=== PATIENT | male | born 1945 | race Caucasian/White ===

== ENCOUNTER 2016-08-27 21:03 | Inpatient (IN) | payer MEDICARE ==
[2016-08-27] MEDS ORDERED: IPRATROPIUM/ALBUTEROL 0.5-2.5 MG/3 ML AMPUL NEB ONE (21:16)
[2016-08-27] MEDS ORDERED: PREDNISONE 20 MG TABLET PO ONE (21:16)
[2016-08-27] MEDS ORDERED: ALBUTEROL SULFATE 0.083% NEB 2.5 MG/3 ML AMPUL NEB SCH (21:31)
[2016-08-27] MEDS ORDERED: ALBUTEROL SULFATE 0.083% NEB 2.5 MG/3 ML AMPUL NEB ONE ×2 (22:04→23:40)
[2016-08-27] MEDS ORDERED: NORMAL SALINE 1000 ML 1,000 ML IV ONE ×2 (22:06→23:41)
--- NOTE | 2016-08-27 22:06 | ER Document Report ---
ED General - General Chief Complaint: Shortness Of Breath Stated Complaint: SHORTNESS OF BREATH Time Seen by Provider: 08/27/16 21:40 Notes: Patient is a 70-year-old male with past medical history of COPD, morbid obesity , noncompliant with all treatment does not actually follow with a primary care doctor anymore who presents with progressive worsening of shortness of breath over the past 3-4 days. States any exertion or movement worsens the shortness of breath. He states resting and trying to take home deep breath improves shortness of breath. He denies any associated chest pain. He has a dry, nonproductive cough. States he has had similar episodes of COPD exacerbations in the past have required admission to the hospital. He has never been intubated in the past. He has not had any fever, vomiting or altered mental status. - Related Data Allergies/Adverse Reactions: No Known Allergies Allergy (Verified 11/30/12 09:32) Past Medical History - General Information source: Patient - Social History Smoking Status: Never Smoker Frequency of alcohol use: None Drug Abuse: None Lives with: Alone Family History: Reviewed & Not Pertinent Pulmonary Medical History: Reports: Hx COPD Musculoskeltal Medical History: Reports Hx Arthritis Past Surgical History: Reports: Hx Abdominal Surgery - Hernia, Hx Orthopedic Surgery - bilateral knees - Immunizations Hx Diphtheria, Pertussis, Tetanus Vaccination: No - unknown date Hx Pneumococcal Vaccination: 12/09/11 Review of Systems - Review of Systems Notes: Constitutional: Negative for fever. HENT: Negative for sore throat. Eyes: Negative for visual changes. Cardiovascular: Negative for chest pain. Respiratory: Positive for shortness of breath. Gastrointestinal: Negative for abdominal pain, vomiting or diarrhea. Genitourinary: Negative for dysuria. Musculoskeletal: Negative for back pain. Skin: Negative for rash. Neurological: Negative for headaches, weakness or numbness. 10 point ROS negative except as marked above and in HPI. Physical Exam - Vital signs Vitals: Pulse Ox 98 08/27/16 21:27 Interpretation: Normal Notes: PHYSICAL EXAMINATION: GENERAL: In moderate to severe respiratory distress. Appears uncomfortable. HEAD: Atraumatic, normocephalic. EYES: Pupils equal round and reactive to light, extraocular movements intact, sclera anicteric, conjunctiva are normal. ENT: nares patent, oropharynx clear without exudates. Moderately dry mucous membranes. NECK: Normal range of motion, supple without lymphadenopathy LUNGS: Moderate to severe respiratory distress with tachypnea with initial respiratory rate of 28. Breathing with pursed lips, tripod position. HEART: Regular rate and rhythm without murmurs ABDOMEN: Soft, nontender, normoactive bowel sounds. No guarding, no rebound. No masses appreciated. EXTREMITIES: Normal range of motion, no pitting or edema. No cyanosis. NEUROLOGICAL: No focal neurological deficits. Moves all extremities spontaneously and on command. PSYCH: Normal mood, normal affect. SKIN: Warm, Dry, normal turgor, no rashes or lesions noted. Course - Re-evaluation Re-evalutation: 08/27/16 22:04 Patient presents in moderate respiratory distress, tachypnea into the upper 20s , hypoxemic into the upper 80s on room air. Presentation is clinically consistent with an acute COPD exacerbation. Patient is tripoding on initial assessment with pursed lips. Will place on continuous nebulizers, begin IV magnesium he has very received IV Solu-Medrol prior to arrival. Patient is critically ill at this time and at risk for respiratory decompensation and will require frequent reassessments. 08/27/16 23:40 On multiple reassessments patient appears to actually be clinically deteriorating despite continuous albuterol nebulizers. Most recent assessment patient is saturating 88% on 2 L by nasal cannula, remains tachypneic to 32 breaths per minute and is in a tripod position. At this point will place patient on BiPAP with continuous in-line nebulizers. Lung exam remains with slight diminished breath sounds particular the bases bilaterally with diffuse expiratory wheezing. He will require admission to the hospital. 08/27/16 23:56 Patient is breathing much better now on BiPAP, I can now appreciate lung sounds at the bases bilaterally. Continues nebulizers are continuing through the BiPAP. Will discuss with the hospitalist for admission. - Vital Signs Vital signs: Temp Pulse Resp BP Pulse Ox 18 144/73 H 99 08/28/16 00:32 08/27/16 22:02 08/28/16 00:32 - Laboratory Result Diagrams: 08/27/16 21:31 08/27/16 21:31 Laboratory results interpreted by me: 08/27/16 21:31 MCV 99 H RDW 14.5 H - Diagnostic Test Radiology reviewed: Image reviewed, Reports reviewed Radiology results interpreted by me: 08/27/16 23:57 Chest x-ray: No acute infiltrate - EKG Interpretation by Me Additional EKG results interpreted by me: 08/28/16 02:25 Sinus rhythm. Rate 75. No ST elevations or depressions. Incomplete right bundle branch block. QTc is 434. Critical Care Note - Critical Care Note Total time excluding time spent on procedures (mins): 37 Comments: Critical care time spent obtaining history from patient or surrogate, discussions with consultants, development of treatment plan with patient or surrogate, evaluation of patient's response to treatment, examination of patient , ordering and performing treatments and interventions, ordering and review of laboratory studies, re-evaluation of patient's condition, ordering and review of radiographic studies and review of old charts Discharge - Discharge Clinical Impression: Respiratory distress, COPD exacerbation Condition: Fair Disposition: ADMITTED INPATIENT Admitting Provider: [facility] Admitted: Telemetry
--- NOTE | 2016-08-27 22:06 | RADIOLOGY REPORT (SQ) ---
EXAM DESCRIPTION: CHEST SINGLE VIEW COMPLETED DATE/TIME: 08/27/2016 9:44 pm REASON FOR STUDY: RESP DISTRESS COMPARISON: 05/07/2013 EXAM PARAMETERS: NUMBER OF VIEWS: One view. TECHNIQUE: Single frontal radiographic view of the chest acquired. RADIATION DOSE: NA LIMITATIONS: None. FINDINGS: LUNGS AND PLEURA: There is hyperexpansion. There is minimal linear atelectasis in the mo g bases. No consolidation or failure. MEDIASTINUM AND HILAR STRUCTURES: No masses. Contour normal. HEART AND VASCULAR STRUCTURES: Heart normal in size. Normal vasculature. BONES: No acute findings. HARDWARE: None in the chest. OTHER: No other significant finding. IMPRESSION: Minimal basilar atelectasis. TECHNICAL DOCUMENTATION: JOB ID: [id number]
[2016-08-27] MEDS ORDERED: MAGNESIUM SULFATE/D5W 2 GM/200 ML RTUPB IV ONE (22:08)
[2016-08-27 22:11] LABS: ABSOLUTE BASOPHILS # (AUTO) 0.1 10^3/uL (0.0-0.2); ABSOLUTE EOSINOPHILS # (AUTO) 0.3 10^3/uL (0.0-0.6); ABSOLUTE LYMPHOCYTES (AUTO) 2.1 10^3/uL (0.5-4.7); ABSOLUTE MONOCYTES (AUTO) 0.6 10^3/uL (0.1-1.4); ABSOLUTE NEUT (AUTO) 3.2 10^3/uL (1.7-8.2); EOSINOPHILS % (AUTO) 4.6 % (0-6); HEMATOCRIT 43.3 % (37.9-51.0); HEMOGLOBIN 14.2 g/dL (13.5-17.0); HGB HCT DIFFERENCE -0.7; LYMPHOCYTES % (AUTO) 33.2 % (13-45); MEAN CORPUSCULAR HEMOGLOBIN 32.5 pg (27.0-33.4); MEAN CORPUSCULAR HGB CONC 32.8 g/dL (32.0-36.0); MEAN CORPUSCULAR VOLUME 99 fl (80-97); MONOCYTES % (AUTO) 9.6 % (3-13); RED BLOOD COUNT 4.37 10^6/uL (4.35-5.55); RED CELL DISTRIBUTION WIDTH 14.5 % (11.5-14.0); SEGMENTED NEUTROPHILS % (AUTO) 51.6 % (42-78); WHITE BLOOD COUNT 6.2 10^3/uL (4.0-10.5)
[2016-08-27] MEDS ORDERED: MAGNESIUM SULFATE/D5W 100 ML IV SCH (22:15)
[2016-08-27 22:27] LABS: ANION GAP 11 (5-19); BLOOD UREA NITROGEN 7 mg/dL (7-20); CALCIUM 8.9 mg/dL (8.4-10.2); CARBON DIOXIDE 29 mmol/L (22-30); CHLORIDE 99 mmol/L (98-107); CREATININE RESULT 0.72 mg/dL (0.52-1.25); GLUCOSE 82 mg/dL (75-110); POTASSIUM 4.5 mmol/L (3.6-5.0)
[2016-08-27] MEDS ORDERED: CEFTRIAXONE 1 GM/D5W RTU 50 ML IV ONE (23:39)
[2016-08-28] MEDS ORDERED: ACETAMINOPHEN 325 MG TABLET PO PRN (00:42)
[2016-08-28] MEDS ORDERED: PREDNISONE 10 MG TABLET PO ONE (01:00)
[2016-08-28] MEDS ORDERED: LACTULOSE SYRUP 20 GM/30 ML UDCUP PO ONE (01:00)
[2016-08-28 01:23] LABS: CREATINE KINASE MB 1.03 ng/mL (<4.55)
[2016-08-28 01:24] LABS: TROPONIN I < 0.012 ng/mL
[2016-08-28 01:51] LABS: URINE BARBITURATES SCREEN NEGATIVE; URINE METHADONE SCREEN NEGATIVE; URINE OPIATES LOW NEGATIVE; URINE PHENCYCLIDINE SCREEN NEGATIVE
[2016-08-28] MEDS: IPRATROPIUM/ALBUTEROL 0.5-2.5 MG/3 ML AMPUL NEB SCH ×4 (02:14→20:52)
[2016-08-28] MEDS ORDERED: THIAMINE HCL INJ 200 MG/2 ML VIAL IV PRN (05:07)
[2016-08-28] MEDS ORDERED: FOLIC ACID INJ 5 MG/1 ML 10 ML VIAL IV PRN (05:08)
--- NOTE | 2016-08-28 05:08 | PDOC H&P ---
History of Present Illness Admission Date/PCP: 08/28/16 00:43 Patient complains of: Shortness of breath History of Present Illness: SYD SADLER is a 70 year old male with a past medical history of medical noncompliance, hypertension, pulmonary emboli, tobacco dependence, obstructive sleep apnea, and 1 cm ulcer to the nose worrisome for malignant melanoma. Patient been in his usual state of health until approximately a week ago noting exceptional shortness of breath with minimal activity and a nonproductive cough denying chest pain nausea vomiting or diaphoresis. Denying infectious contacts or change in medications. In the emergency room he was found to have global wheezing and oxygen saturations in the 80s and respiratory rate over 30. He receives albuterol and Atrovent and empiric antibiotics and referred to the hospitalist for admission. Patient had a rapidly expanding 1 cm ulcer to the tip of his nose over the last 12 months. Past Medical History Cardiac Medical History: Reports: Hypertension, Pulmonary Embolism Pulmonary Medical History: Reports: Chronic Obstructive Pulmonary Disease (COPD) Musculoskeltal Medical History: Reports: Arthritis Psychiatric Medical History: Reports: Alcohol Dependency, Tobacco Dependency Past Surgical History Past Surgical History: Reports: Orthopedic Surgery - bilateral knees Social History Information Source: Patient Lives with: Alone Smoking Status: Current Every Day Smoker Cigarettes Packs Per Day: 1 Frequency of Alcohol Use: Heavy Hx Recreational Drug Use: No - Advance Directive Resuscitation Status: Full Code Family History Family History: COPD Parental Family History Reviewed: Yes Children Family History Reviewed: Yes Sibling(s) Family History Reviewed.: Yes Medication/Allergy Home Medications: Furosemide [Lasix 40 mg Tablet] 40 mg PO QAM 09/22/12 Rivaroxaban [Xarelto 15 mg Tablet] 15 mg PO BID 21 Days 01/16/13 Magnesium Citrate [Citrate of Magnesia 296 ml Bottle] 296 ml PO DAILY #1 bottle 05/07/13 Na Phos,M-B/Na Phos,Di-Ba [Fleet Enema (Adult) 133 ml] 1 applic [place] DAILYP PRN # 1 enema 05/07/13 Allergies/Adverse Reactions: No Known Allergies Allergy (Verified 11/30/12 09:32) Review of Systems Constitutional: PRESENT: anorexia, fatigue, weakness, weight loss Eyes: ABSENT: visual disturbances Ears: ABSENT: hearing changes Nose, Mouth, and Throat: PRESENT: other - 1 cm ulcer to the nose Cardiovascular: PRESENT: dyspnea on exertion. ABSENT: chest pain, edema, orthropnea, palpitations Respiratory: PRESENT: cough, dyspnea. ABSENT: hemoptysis, sputum Gastrointestinal: ABSENT: abdominal pain, constipation, diarrhea, hematemesis, hematochezia, nausea, vomiting Genitourinary: ABSENT: dysuria, hematuria Musculoskeletal: ABSENT: joint swelling Integumentary: ABSENT: rash, wounds Neurological: ABSENT: abnormal gait, abnormal speech, confusion, dizziness, focal weakness, syncope Psychiatric: PRESENT: anxiety Endocrine: ABSENT: cold intolerance, heat intolerance, polydipsia, polyuria Hematologic/Lymphatic: ABSENT: easy bleeding, easy bruising Physical Exam Vital Signs: Temp Pulse Resp BP Pulse Ox 102 H 17 121/72 97 08/28/16 02:23 08/28/16 03:55 08/28/16 02:01 08/28/16 03:55 General appearance: PRESENT: cooperative, disheveled, severe distress Head exam: PRESENT: atraumatic, normocephalic Eye exam: PRESENT: conjunctiva pink, EOMI, PERRLA. ABSENT: scleral icterus Ear exam: PRESENT: normal external ear exam Mouth exam: PRESENT: moist, tongue midline Neck exam: ABSENT: carotid bruit, JVD, lymphadenopathy, thyromegaly Respiratory exam: PRESENT: accessory muscle use, crackles, prolonged expiratory phas, retraction, symmetrical, tachypnea, wheezes. ABSENT: rhonchi, stridor Cardiovascular exam: PRESENT: RRR. ABSENT: diastolic murmur, rubs, systolic murmur Pulses: PRESENT: normal dorsalis pedis pul Vascular exam: PRESENT: normal capillary refill GI/Abdominal exam: PRESENT: normal bowel sounds, soft. ABSENT: distended, guarding, mass, organolmegaly, rebound, tenderness Rectal exam: PRESENT: deferred Extremities exam: PRESENT: full ROM, other. ABSENT: calf tenderness, clubbing, pedal edema Neurological exam: PRESENT: alert, awake, oriented to person, oriented to place , oriented to time, oriented to situation, CN II-XII grossly intact. ABSENT: motor sensory deficit Psychiatric exam: PRESENT: anxious Skin exam: PRESENT: dry, intact, warm, other - 1 cm ulcer to the nose. ABSENT: cyanosis, rash Results Impressions: Chest X-Ray 08/27/16 21:16 IMPRESSION: Minimal basilar atelectasis. Assessment & Plan - Diagnosis (1) Atypical pneumonia Is this a current diagnosis for this admission?: YesPlan: Symptomatic management, empiric antibiotics, CT of the chest ordered but pending. Consider steroids as nose ulcer may be extrapulmonary manifestation of sarcoid although will await CT chest results (2) Alcohol dependence Is this a current diagnosis for this admission?: YesPlan: Thiamine and folate initiated patient gives a history suggestive of withdrawal as needed Ativan as tolerated by respiratory distress. (3) Tobacco abuse Is this a current diagnosis for this admission?: YesPlan: Tobacco Dependence patient received tobacco cessation counseling and offered nicotine replacement options (4) Nose ulceration Is this a current diagnosis for this admission?: YesPlan: Patient has obtained dermatology consult as outpatient this week. Malignant melanoma versus sarcoid. (5) COPD exacerbation Is this a current diagnosis for this admission?: YesPlan: Supportive management, albuterol, Atrovent, Flonase, flutter valve (6) Respiratory distress Is this a current diagnosis for this admission?: YesPlan: BiPAP and ABG pending - Time Time Spent: 50 to 70 Minutes - Inpatient Certification Medical Necessity: Need Close Monitoring Due to Risk of Patient Decompensation
[2016-08-28] MEDS ORDERED: THIAMINE HCL 100 MG, FOLIC ACID 1 MG in NORMAL SALINE 50 ML IV ONE (05:15)
[2016-08-28] MEDS ORDERED: LORAZEPAM INJ 2 MG/1 ML VIAL IV ONE (05:15)
[2016-08-28 05:27] LABS: ARTERIAL BLOOD BASE EXCESS -3.3 mmol/L; ARTERIAL BLOOD O2 SATURATION 95.7 % (94-98)
[2016-08-28 06:44] LABS: TROPONIN I < 0.012 ng/mL
--- NOTE | 2016-08-28 06:52 | RADIOLOGY REPORT (SQ) ---
EXAM DESCRIPTION: CT CHEST WITHOUT COMPLETED DATE/TIME: 08/28/2016 6:30 am REASON FOR STUDY: atypical pna, 80 pk/yrs I26.09 OTHER PULMONARY EMBOLISM WITH ACUTE COR PULMONALE COMPARISON: CR, 08/27/2016. CT cervical spine, 09/22/2012. TECHNIQUE: CT scan performed of the chest without intravenous contrast. Images reviewed with lung, soft tissue and bone windows. Reconstructed coronal and sagittal MPR images reviewed. All images st ored on PACS. All CT scanners at this facility use dose modulation, iterative reconstruction, and/or weight based d osing when appropriate to reduce radiation dose to as low as reasonably achievable (ALARA). [facility]: Dose Right [facility]: CareDose [facility]: Dose Right [facility]: Teradose 4D [facility]: [employer] RADIATION DOSE: Up-to-date CT equipment and radiation dose reduction techniques were employed. CTDIv ol: 16.2 mGy. DLP: 706 mGy-cm. mGy. LIMITATIONS: No technical limitations. FINDINGS: LUNGS AND PLEURA: Small subpleural cysts of the lung apices. Small atelectasis or scar of bilateral lower lobes, left more than right. 0.5 cm right middle lobar pulmonary nodule, image 50 o f series 4. Moderate centrilobular emphysema, lower lobe predominance. HILAR AND MEDIASTINAL STRUCTURES: No identified masses or abnormal nodes. No obvious aneurysm. HEART AND VASCULAR STRUCTURES: No aneurysm. No pericardial effusion. Moderate coronary arterial suzie cification -stenting. UPPER ABDOMEN: Mild fat replacement of pancreas. Mild bilateral perinephric fat stranding. Mild non specific macro nodularity of the liver surface may indicate cirrhosis. THYROID AND OTHER SOFT TISSUES: No masses. No adenopathy. BONES: Moderate disc desiccation. HARDWARE: None in the chest. OTHER: Right paracentral anterior nuchal mass of the inferior neck partially imaged ; the mass measur es at least 4.0 cm and appears complex cystic, image 2 of series 3. IMPRESSION: 1. Indeterminate nuchal mass measuring at least 4 cm in the right paracentral anterior lower neck. Further evaluation with contrast CT of the neck recommended. 2. A 0.5 cm right middle lobar pulmonary nodule. Recommend 1 year surveillance. COMMENT: FLEISCHNER CRITERIA FOR FOLLOW-UP OF PULMONARY NODULES Incidentally detected new nodules in persons 35 or older. HIGH RISK: History of smoking or other known risk factors. <6mm single solid nodule: LOW RISK: no routine followup. HIGH RISK: optional CT 12 mo. TECHNICAL DOCUMENTATION: JOB ID: [id number] Quality ID # [id number]: Final reports with documentation of one or more dose reduction techniques (e.g., Au tomated exposure control, adjustment of the mA and/or kV according to patient size, use of iterative reconstruction technique) 2010 [employer]- All Rights Reserved
--- NOTE | 2016-08-28 08:43 | EKG REPORT ---
SEVERITY:- ABNORMAL ECG - SINUS RHYTHM INCOMPLETE LEFT BUNDLE BRANCH BLOCK : Confirmed by: Daphne Santiago MD 28-Aug-2016 08:42:18
--- NOTE | 2016-08-28 09:57 | RADIOLOGY REPORT (SQ) ---
EXAM DESCRIPTION: CT SOFT TISSUE NECK WITH COMPLETED DATE/TIME: 08/28/2016 9:31 am REASON FOR STUDY: neck mass I26.09 OTHER PULMONARY EMBOLISM WITH ACUTE COR PULMONALE COMPARISON: CT chest 08/28/2016 CT cervical spine 09/22/2012 TECHNIQUE: Post IV contrasted scanning from skull base through lung apices with review of bone, soft tissue and lung windows. Reconstructed coronal and sagittal MPR images reviewed. All images stored on PACS. All CT scanners at this facility use dose modulation, iterative reconstruction, and/or weight based d osing when appropriate to reduce radiation dose to as low as reasonably achievable (ALARA). [facility]: Dose Right [facility]: CareDose [facility]: Dose Right [facility]: Teradose 4D [facility]: [employer] CONTRAST TYPE AND DOSE: contrast/concentration: Isovue 370.00 mg/ml; Total Contrast Delivered: 75.0 ml; Total Saline Delivered: 55.0 ml RENAL FUNCTION: Creatinine 0.72 RADIATION DOSE: Up-to-date CT equipment and radiation dose reduction techniques were employed. CTDIv ol: 17.5 mGy. DLP: 659 mGy-cm. . LIMITATIONS: None. FINDINGS: SKULL BASE: Intact. MAJOR SALIVARY GLANDS: No solid or cystic masses. No inflammatory changes. LYMPHADENOPATHY: No adenopathy. MUCOSAL MASSES OR ASYMMETRY: No mucosal masses or asymmetry. LARYNX/CORDS: No abnormal findings. VASCULAR STRUCTURES: The major vessels are patent. There is carotid bifurcation calcification bilate rally without flow significant proximal ICA stenosis LUNG APICES: Clear. BONES: Intact. THYROID: Normal size. No masses. PARANASAL SINUSES: Clear. OTHER: Prior CT chest 08/28/2016 was reviewed. The right neck mass seen on the uppermost slice is the right submandibular gland and floor of mouth musculature. This [id number] was called to Dr Arriola IMPRESSION: NO SIGNIFICANT FINDING IN THE SOFT TISSUES OF THE NECK. TECHNICAL DOCUMENTATION: JOB ID: [id number] Quality ID # [id number]: Final reports with documentation of one or more dose reduction techniques (e.g., Au tomated exposure control, adjustment of the mA and/or kV according to patient size, use of iterative reconstruction technique) 2010 [employer]- All Rights Reserved
[2016-08-28] MEDS ORDERED: PREDNISONE 10 MG TABLET PO SCH (10:00)
[2016-08-28] MEDS: AZITHROMYCIN 500 MG in DEXTROSE 5%-WATER 250 ML IV SCH (10:13)
[2016-08-28] MEDS: FLUTICASONE NASAL SPRAY 50 MCG/SPRY 120 SPRAY/16 GM NASL SCH ×2 (10:18→22:22)
[2016-08-28] MEDS: GUAIFENESIN 600 MG TABLET.SA PO SCH ×2 (10:18→22:22)
--- NOTE | 2016-08-28 12:15 | PDOC PROGRESS REPORT ---
Subjective Progress Note for:: 08/28/16 Subjective:: Patient reports that his breathing is doing better on the BiPAP Physical Exam Vital Signs: Temp Pulse Resp BP Pulse Ox 97.7 F 102 H 13 140/82 H 99 08/28/16 11:05 08/28/16 02:23 08/28/16 11:01 08/28/16 11:00 08/28/16 11:01 Intake & Output 08/27/16 08/28/16 08/29/16 06:59 06:59 06:59 Weight 90.718 kg General appearance: PRESENT: mild distress Eye exam: PRESENT: conjunctiva pink. ABSENT: scleral icterus Mouth exam: PRESENT: moist, tongue midline Neck exam: PRESENT: lymphadenopathy - Right submandibular. ABSENT: JVD Respiratory exam: PRESENT: wheezes - Bilateral expiratory wheezes. ABSENT: rales, rhonchi Cardiovascular exam: PRESENT: RRR. ABSENT: diastolic murmur, rubs, systolic murmur GI/Abdominal exam: PRESENT: normal bowel sounds, soft. ABSENT: distended, guarding, mass, organolmegaly, rebound, tenderness Extremities exam: ABSENT: calf tenderness, clubbing, pedal edema Neurological exam: PRESENT: alert, awake, oriented to person, oriented to place , oriented to time, oriented to situation, CN II-XII grossly intact. ABSENT: motor sensory deficit Psychiatric exam: PRESENT: appropriate affect Skin exam: PRESENT: other - Darkly pigmented lesion on the nose approximately 1.5 cm in diameter with a small ulceration in the middle of about 1 or 2 mm. Results Laboratory Results: 08/28/16 05:05 Carbonic Acid 1.17 HCO3/H2CO3 Ratio 18:1 ABG pH 7.36 ABG pCO2 39.0 ABG pO2 81.6 ABG HCO3 21.7 ABG O2 Saturation 95.7 ABG Base Excess -3.3 FiO2 25% 08/28/16 08/28/16 06:02 06:02 Creatine Kinase 67 CK-MB (CK-2) 1.10 Troponin I < 0.012 Impressions: Chest X-Ray 08/27/16 21:16 IMPRESSION: Minimal basilar atelectasis. Chest CT 08/28/16 00:00 IMPRESSION: 1. Indeterminate nuchal mass measuring at least 4 cm in the right paracentral anterior lower neck. Further evaluation with contrast CT of the neck recommended. 2. A 0.5 cm right middle lobar pulmonary nodule. Recommend 1 year surveillance. Soft Tissue Neck CT 08/28/16 00:00 IMPRESSION: NO SIGNIFICANT FINDING IN THE SOFT TISSUES OF THE NECK. Assessment & Plan - Diagnosis (1) Atypical pneumonia Is this a current diagnosis for this admission?: YesPlan: Has been started on Zithromax. (2) COPD exacerbation Is this a current diagnosis for this admission?: YesPlan: Continue with nebulizers, BiPAP and steroids. We will change steroids from prednisone to IV Solu-Medrol (3) Nose ulceration Is this a current diagnosis for this admission?: YesPlan: The patient reports he has an appointment with dermatology next week (4) Respiratory distress Is this a current diagnosis for this admission?: YesPlan: Secondary to pneumonia and acute COPD exacerbation. (5) Submandibular lymphadenopathy Is this a current diagnosis for this admission?: YesPlan: The patient has lymphadenopathy. If it does not improve with antibiotic treatment he may need surgical evaluation. - Time Time Spent with patient: 25-34 minutes - Inpatient Certification Medical Necessity: Need for IV Antibiotics
[2016-08-28 14:23] LABS: CREATINE KINASE MB 1.97 ng/mL (<4.55)
[2016-08-28 14:33] LABS: TROPONIN I < 0.012 ng/mL
[2016-08-28] MEDS: HEPARIN SOD (PORCINE) 5,000 UNIT/ML 1 ML SYRINGE SUBCUT SCH ×3 (14:46→22:22)
[2016-08-28] MEDS: METHYLPREDNISOLONE INJ 40 MG/1 ML SDV IV SCH ×2 (14:47→22:22)
[2016-08-29] MEDS: IPRATROPIUM/ALBUTEROL 0.5-2.5 MG/3 ML AMPUL NEB SCH ×4 (02:15→19:17)
[2016-08-29] MEDS: METHYLPREDNISOLONE INJ 40 MG/1 ML SDV IV SCH ×3 (05:33→21:47)
[2016-08-29] MEDS: HEPARIN SOD (PORCINE) 5,000 UNIT/ML 1 ML SYRINGE SUBCUT SCH ×3 (05:33→21:47)
[2016-08-29 06:19] LABS: ANION GAP 7 (5-19); BLOOD UREA NITROGEN 13 mg/dL (7-20); CALCIUM 9.4 mg/dL (8.4-10.2); CARBON DIOXIDE 29 mmol/L (22-30); CHLORIDE 102 mmol/L (98-107); CREATININE RESULT 0.64 mg/dL (0.52-1.25); GLUCOSE 157 mg/dL (75-110); POTASSIUM 4.8 mmol/L (3.6-5.0); SODIUM 138.1 mmol/L (137-145)
[2016-08-29 06:23] LABS: HEMATOCRIT 41.5 % (37.9-51.0); HEMOGLOBIN 13.7 g/dL (13.5-17.0); HGB HCT DIFFERENCE -0.4; MEAN CORPUSCULAR HEMOGLOBIN 32.2 pg (27.0-33.4); MEAN CORPUSCULAR HGB CONC 32.9 g/dL (32.0-36.0); MEAN CORPUSCULAR VOLUME 98 fl (80-97); RED BLOOD COUNT 4.24 10^6/uL (4.35-5.55); RED CELL DISTRIBUTION WIDTH 14.5 % (11.5-14.0)
[2016-08-29 06:38] LABS: BASOPHILS % (MANUAL) 0 % (0-2); EOSINOPHILS % (MANUAL) 0 % (0-6); LYMPHOCYTES % (MANUAL) 1 % (13-45); TOTAL CELLS COUNTED 100
[2016-08-29 06:39] LABS: RBC MORPHOLOGY COMMENT NORMO-CYTIC/CHROMIC
[2016-08-29 06:40] LABS: WHITE BLOOD COUNT 14.8 10^3/uL (4.0-10.5)
[2016-08-29] MEDS: FLUTICASONE NASAL SPRAY 50 MCG/SPRY 120 SPRAY/16 GM NASL SCH ×2 (09:23→21:47)
[2016-08-29] MEDS: GUAIFENESIN 600 MG TABLET.SA PO SCH ×2 (09:24→21:47)
[2016-08-29] MEDS: AZITHROMYCIN 500 MG in DEXTROSE 5%-WATER 250 ML IV SCH (09:24)
--- NOTE | 2016-08-29 10:41 | PDOC PROGRESS REPORT ---
Subjective Progress Note for:: 08/29/16 Subjective:: Patient reports that he is less short of breath today. Physical Exam Vital Signs: Temp Pulse Resp BP Pulse Ox 98.1 F 90 18 149/82 H 97 08/29/16 07:29 08/29/16 09:53 08/29/16 08:16 08/29/16 07:29 08/29/16 07:29 Intake & Output 08/28/16 08/29/16 08/30/16 06:59 06:59 06:59 Intake Total 498 Balance 498 Weight 90.7 kg General appearance: PRESENT: no acute distress Eye exam: PRESENT: conjunctiva pink. ABSENT: scleral icterus Ear exam: PRESENT: normal external ear exam Mouth exam: PRESENT: moist, tongue midline Neck exam: ABSENT: JVD Respiratory exam: PRESENT: wheezes - Scattered expiratory wheezes. ABSENT: rales, rhonchi Cardiovascular exam: PRESENT: RRR. ABSENT: diastolic murmur, rubs, systolic murmur GI/Abdominal exam: PRESENT: normal bowel sounds, soft. ABSENT: distended, guarding, mass, organolmegaly, rebound, tenderness Extremities exam: ABSENT: calf tenderness, clubbing, pedal edema Neurological exam: PRESENT: alert, awake, oriented to person, oriented to place , oriented to time, oriented to situation, CN II-XII grossly intact. ABSENT: motor sensory deficit Psychiatric exam: PRESENT: appropriate affect Skin exam: PRESENT: dry, intact, warm, other - Darkly pigmented area on the tip of his nose.. ABSENT: cyanosis, rash Results Laboratory Results: 08/29/16 05:22 08/29/16 05:22 08/29/16 08/29/16 05:22 05:22 WBC 14.8 H D RBC 4.24 L Hgb 13.7 Hct 41.5 MCV 98 H MCH 32.2 MCHC 32.9 RDW 14.5 H Plt Count 182 Seg Neutrophils % Not Reportable Lymphocytes % Not Reportable Monocytes % Not Reportable Eosinophils % Not Reportable Basophils % Not Reportable Absolute Neutrophils Not Reportable Absolute Lymphocytes Not Reportable Absolute Monocytes Not Reportable Absolute Eosinophils Not Reportable Absolute Basophils Not Reportable Sodium 138.1 Potassium 4.8 Chloride 102 Carbon Dioxide 29 Anion Gap 7 BUN 13 Creatinine 0.64 Est GFR ( Amer) > 60 Est GFR (Non-Af Amer) > 60 Glucose 157 H Calcium 9.4 Impressions: Chest X-Ray 08/27/16 21:16 IMPRESSION: Minimal basilar atelectasis. Chest CT 08/28/16 00:00 IMPRESSION: 1. Indeterminate nuchal mass measuring at least 4 cm in the right paracentral anterior lower neck. Further evaluation with contrast CT of the neck recommended. 2. A 0.5 cm right middle lobar pulmonary nodule. Recommend 1 year surveillance. Soft Tissue Neck CT 08/28/16 00:00 IMPRESSION: NO SIGNIFICANT FINDING IN THE SOFT TISSUES OF THE NECK. Assessment & Plan - Diagnosis (1) Atypical pneumonia Is this a current diagnosis for this admission?: YesPlan: Has been started on Zithromax. (2) COPD exacerbation Is this a current diagnosis for this admission?: YesPlan: Continue with nebulizers, BiPAP and steroids. We will continue IV Solu-Medrol (3) Nose ulceration Is this a current diagnosis for this admission?: YesPlan: The patient reports he has an appointment with dermatology next week (4) Respiratory distress Is this a current diagnosis for this admission?: YesPlan: Secondary to pneumonia and acute COPD exacerbation. (5) Submandibular lymphadenopathy Is this a current diagnosis for this admission?: YesPlan: The patient has lymphadenopathy. If it does not improve with antibiotic treatment he may need surgical evaluation. - Time Time Spent with patient: 25-34 minutes - Inpatient Certification Medical Necessity: Need for IV Antibiotics
[2016-08-30] MEDS: IPRATROPIUM/ALBUTEROL 0.5-2.5 MG/3 ML AMPUL NEB SCH ×4 (02:29→20:23)
[2016-08-30] MEDS: HEPARIN SOD (PORCINE) 5,000 UNIT/ML 1 ML SYRINGE SUBCUT SCH ×3 (05:24→21:46)
[2016-08-30] MEDS: METHYLPREDNISOLONE INJ 40 MG/1 ML SDV IV SCH ×3 (05:25→21:45)
[2016-08-30 06:10] LABS: HEMATOCRIT 39.7 % (37.9-51.0); HEMOGLOBIN 13.1 g/dL (13.5-17.0); HGB HCT DIFFERENCE -0.4; MEAN CORPUSCULAR HEMOGLOBIN 32.4 pg (27.0-33.4); MEAN CORPUSCULAR HGB CONC 33.1 g/dL (32.0-36.0); MEAN CORPUSCULAR VOLUME 98 fl (80-97); RED BLOOD COUNT 4.06 10^6/uL (4.35-5.55); RED CELL DISTRIBUTION WIDTH 14.6 % (11.5-14.0); WHITE BLOOD COUNT 13.9 10^3/uL (4.0-10.5)
[2016-08-30 06:35] LABS: ANION GAP 6 (5-19); BLOOD UREA NITROGEN 17 mg/dL (7-20); CALCIUM 9.3 mg/dL (8.4-10.2); CARBON DIOXIDE 30 mmol/L (22-30); CHLORIDE 102 mmol/L (98-107); CREATININE RESULT 0.64 mg/dL (0.52-1.25); GLUCOSE 137 mg/dL (75-110); POTASSIUM 4.8 mmol/L (3.6-5.0); SODIUM 137.7 mmol/L (137-145)
[2016-08-30 06:37] LABS: BAND NEUTROPHILS % (MANUAL) 1 % (3-5); BASOPHILS % (MANUAL) 0 % (0-2); EOSINOPHILS % (MANUAL) 0 % (0-6); LYMPHOCYTES % (MANUAL) 3 % (13-45); TOTAL CELLS COUNTED 100
[2016-08-30 06:38] LABS: ANISOCYTOSIS SLIGHT
[2016-08-30] MEDS: GUAIFENESIN 600 MG TABLET.SA PO SCH ×2 (09:50→21:46)
[2016-08-30] MEDS: FLUTICASONE NASAL SPRAY 50 MCG/SPRY 120 SPRAY/16 GM NASL SCH ×2 (09:50→21:46)
[2016-08-30] MEDS: AZITHROMYCIN 500 MG in DEXTROSE 5%-WATER 250 ML IV SCH (09:50)
--- NOTE | 2016-08-30 16:58 | PDOC PROGRESS REPORT ---
Subjective Progress Note for:: 08/30/16 Subjective:: Reports some expiratory wheezes. Physical Exam Vital Signs: Temp Pulse Resp BP Pulse Ox 97.8 F 81 18 144/75 H 100 08/30/16 12:48 08/30/16 14:00 08/30/16 14:00 08/30/16 12:48 08/30/16 16:25 Intake & Output 08/29/16 08/30/16 08/31/16 06:59 06:59 06:59 Intake Total 498 1400 Balance 498 1400 Weight 90.7 kg 90.7 kg General appearance: PRESENT: no acute distress Eye exam: PRESENT: conjunctiva pink. ABSENT: scleral icterus Ear exam: PRESENT: normal external ear exam Mouth exam: PRESENT: moist, tongue midline Neck exam: ABSENT: JVD Respiratory exam: ABSENT: rales, rhonchi, wheezes Cardiovascular exam: PRESENT: RRR. ABSENT: diastolic murmur, rubs, systolic murmur GI/Abdominal exam: PRESENT: normal bowel sounds, soft. ABSENT: distended, guarding, mass, organolmegaly, rebound, tenderness Extremities exam: ABSENT: calf tenderness, clubbing, pedal edema Neurological exam: PRESENT: alert, awake, oriented to person, oriented to place , oriented to time, oriented to situation, CN II-XII grossly intact. ABSENT: motor sensory deficit Psychiatric exam: PRESENT: appropriate affect Skin exam: PRESENT: dry, intact, warm, other - Pigmented lesion on the tip of his nose with a small amount of ulceration. ABSENT: cyanosis, rash Results Laboratory Results: 08/30/16 05:26 08/30/16 05:26 08/30/16 08/30/16 05:26 05:26 WBC 13.9 H RBC 4.06 L Hgb 13.1 L Hct 39.7 MCV 98 H MCH 32.4 MCHC 33.1 RDW 14.6 H Plt Count 168 Seg Neutrophils % Not Reportable Lymphocytes % Not Reportable Monocytes % Not Reportable Eosinophils % Not Reportable Basophils % Not Reportable Absolute Neutrophils Not Reportable Absolute Lymphocytes Not Reportable Absolute Monocytes Not Reportable Absolute Eosinophils Not Reportable Absolute Basophils Not Reportable Sodium 137.7 Potassium 4.8 Chloride 102 Carbon Dioxide 30 Anion Gap 6 BUN 17 Creatinine 0.64 Est GFR ( Amer) > 60 Est GFR (Non-Af Amer) > 60 Glucose 137 H Calcium 9.3 Impressions: Chest X-Ray 08/27/16 21:16 IMPRESSION: Minimal basilar atelectasis. Chest CT 08/28/16 00:00 IMPRESSION: 1. Indeterminate nuchal mass measuring at least 4 cm in the right paracentral anterior lower neck. Further evaluation with contrast CT of the neck recommended. 2. A 0.5 cm right middle lobar pulmonary nodule. Recommend 1 year surveillance. Soft Tissue Neck CT 08/28/16 00:00 IMPRESSION: NO SIGNIFICANT FINDING IN THE SOFT TISSUES OF THE NECK. Assessment & Plan - Diagnosis (1) Atypical pneumonia Is this a current diagnosis for this admission?: YesPlan: Continue on Zithromax. (2) COPD exacerbation Is this a current diagnosis for this admission?: YesPlan: Continue with nebulizers, BiPAP and steroids. We will continue IV Solu-Medrol (3) Nose ulceration Is this a current diagnosis for this admission?: YesPlan: The patient reports he has an appointment with dermatology next week (4) Respiratory distress Is this a current diagnosis for this admission?: YesPlan: Secondary to pneumonia and acute COPD exacerbation. (5) Submandibular lymphadenopathy Is this a current diagnosis for this admission?: YesPlan: The patient has lymphadenopathy. If it does not improve with antibiotic treatment he may need surgical evaluation. - Time Time Spent with patient: 25-34 minutes - Inpatient Certification Medical Necessity: Need for IV Antibiotics - Plan Summary Plan Summary: If he continues to improve we can hopefully discharge home tomorrow.
[2016-08-31] MEDS: IPRATROPIUM/ALBUTEROL 0.5-2.5 MG/3 ML AMPUL NEB SCH ×2 (02:22→09:33)
[2016-08-31] MEDS: METHYLPREDNISOLONE INJ 40 MG/1 ML SDV IV SCH (05:41)
[2016-08-31] MEDS: HEPARIN SOD (PORCINE) 5,000 UNIT/ML 1 ML SYRINGE SUBCUT SCH (05:41)
[2016-08-31 06:38] LABS: ANION GAP 9 (5-19); BLOOD UREA NITROGEN 18 mg/dL (7-20); CALCIUM 9.4 mg/dL (8.4-10.2); CARBON DIOXIDE 31 mmol/L (22-30); CHLORIDE 99 mmol/L (98-107); CREATININE RESULT 0.65 mg/dL (0.52-1.25); GLUCOSE 131 mg/dL (75-110); POTASSIUM 4.9 mmol/L (3.6-5.0); SODIUM 138.8 mmol/L (137-145)
[2016-08-31 06:41] LABS: HEMATOCRIT 43.3 % (37.9-51.0); HEMOGLOBIN 13.9 g/dL (13.5-17.0); HGB HCT DIFFERENCE -1.6; MEAN CORPUSCULAR HEMOGLOBIN 31.7 pg (27.0-33.4); MEAN CORPUSCULAR HGB CONC 32.2 g/dL (32.0-36.0); MEAN CORPUSCULAR VOLUME 99 fl (80-97); RED BLOOD COUNT 4.39 10^6/uL (4.35-5.55); RED CELL DISTRIBUTION WIDTH 14.3 % (11.5-14.0); WHITE BLOOD COUNT 11.6 10^3/uL (4.0-10.5)
[2016-08-31 07:23] LABS: BASOPHILS % (MANUAL) 0 % (0-2); EOSINOPHILS % (MANUAL) 0 % (0-6); LYMPHOCYTES % (MANUAL) 7 % (13-45); TOTAL CELLS COUNTED 100
[2016-08-31 07:24] LABS: RBC MORPHOLOGY COMMENT NORMO-CYTIC/CHROMIC
[2016-08-31 08:16] VITALS: BP 146/82
[2016-08-31] MEDS: GUAIFENESIN 600 MG TABLET.SA PO SCH (09:06)
[2016-08-31] MEDS: FLUTICASONE NASAL SPRAY 50 MCG/SPRY 120 SPRAY/16 GM NASL SCH (09:06)
[2016-08-31] MEDS: AZITHROMYCIN 500 MG in DEXTROSE 5%-WATER 250 ML IV SCH (09:06)
--- NOTE | 2016-08-31 10:53 | PDOC DISCHARGE SUMMARY ---
General - Admit/Disc Date/PCP Admission Date/Primary Care Provider: 08/28/16 17:29 Discharge Date: 08/31/16 - Discharge Diagnosis (1) Atypical pneumonia Is this a current diagnosis for this admission?: Yes (2) COPD exacerbation Is this a current diagnosis for this admission?: Yes (3) Nose ulceration Is this a current diagnosis for this admission?: YesSummary: Has an appointment with the phone screener to evaluate this in the coming week. (4) Respiratory distress Is this a current diagnosis for this admission?: Yes (5) Submandibular lymphadenopathy Is this a current diagnosis for this admission?: Yes - Additional Information Resuscitation Status: Full Code Discharge Diet: Regular Discharge Activity: Activity As Tolerated Home Medications: Albuterol Sulfate [Ventolin HFA MDI 18 GM] 1 - 2 puff IH Q4H PRN #1 mdi Guaifenesin [Mucinex Sr 600 mg Tablet.sa] 1,200 mg PO Q12 tablet.sa 08/31/16 Prednisone 10 mg PO DAILY #39 tablet 08/31/16 History of Present Illness History of Present Illness: SYD SADLER is a 70 year old male has a history of obstructive sleep apnea as well as hypertension and distant history of pulmonary embolism who presented with shortness of breath of approximately 1 week's duration. Patient was found to have atypical pneumonia and also was found to have acute COPD exacerbation. Patient was admitted for further treatment of that. Hospital Course Hospital Course: 70-year-old gentleman with a history of COPD and obstructive sleep apnea who presented with shortness of breath. He was found to have a pneumonia and was treated with IV Zithromax. Patient had negative cultures. He received 3 doses of Zithromax. Patient also was noted to have an acute COPD exacerbation was treated with IV steroids and nebulizers. On the day of discharge he was no longer having wheezing and his oxygen saturations were greater than 90% on room air with ambulation. The patient has a pigmented ulceration lesion on his nose at the tip. This is worrisome for the possibility of melanoma, however the patient has an appointment with dermatology this week by his report. Patient also was noted to have a right-sided neck mass on chest CT and CT of the neck showed her to be a submandibular lymph node. The flow was minimally tender and most likely is related to his underlying illness and infection. If the patient continues to have lymphadenopathy the possibility of this being malignancy is considered and would need further workup. Will defer to his primary care doctor to follow-up on this to make certain he has had resolution of his right submandibular lymphadenopathy. Physical Exam Vital Signs: Temp Pulse Resp BP Pulse Ox 98.4 F 78 16 146/82 H 97 08/31/16 10:00 08/31/16 10:00 08/31/16 10:00 08/31/16 10:00 08/31/16 10:00 Intake & Output 08/30/16 08/31/16 09/01/16 06:59 06:59 06:59 Intake Total 1400 1486 Balance 1400 1486 Weight 90.7 kg 93.7 kg General appearance: PRESENT: no acute distress Head exam: PRESENT: other - Pigmented lesion on the tip of his nose with a very small ulceration Eye exam: PRESENT: conjunctiva pink. ABSENT: scleral icterus Ear exam: PRESENT: normal external ear exam Mouth exam: PRESENT: moist, tongue midline Neck exam: PRESENT: lymphadenopathy - Right submandibular lymphadenopathy about 2 cm in size. Freely mobile.. ABSENT: JVD Respiratory exam: PRESENT: clear to auscultation zehra. ABSENT: rales, rhonchi, wheezes Cardiovascular exam: PRESENT: RRR. ABSENT: diastolic murmur, rubs, systolic murmur GI/Abdominal exam: PRESENT: normal bowel sounds, soft. ABSENT: distended, guarding, mass, organolmegaly, rebound, tenderness Extremities exam: ABSENT: calf tenderness, clubbing, pedal edema Neurological exam: PRESENT: alert, awake, oriented to person, oriented to place , oriented to time, oriented to situation, CN II-XII grossly intact. ABSENT: motor sensory deficit Psychiatric exam: PRESENT: appropriate affect Skin exam: PRESENT: other - Pigmented lesion on the tip of his nose with a small ulceration. Results Laboratory Results: 08/31/16 06:00 08/31/16 06:00 08/31/16 08/31/16 06:00 06:00 WBC 11.6 H RBC 4.39 Hgb 13.9 Hct 43.3 MCV 99 H MCH 31.7 MCHC 32.2 RDW 14.3 H Plt Count 191 Seg Neutrophils % Not Reportable Lymphocytes % Not Reportable Monocytes % Not Reportable Eosinophils % Not Reportable Basophils % Not Reportable Absolute Neutrophils Not Reportable Absolute Lymphocytes Not Reportable Absolute Monocytes Not Reportable Absolute Eosinophils Not Reportable Absolute Basophils Not Reportable Sodium 138.8 Potassium 4.9 Chloride 99 Carbon Dioxide 31 H Anion Gap 9 BUN 18 Creatinine 0.65 Est GFR ( Amer) > 60 Est GFR (Non-Af Amer) > 60 Glucose 131 H Calcium 9.4 Impressions: Chest X-Ray 08/27/16 21:16 IMPRESSION: Minimal basilar atelectasis. Chest CT 08/28/16 00:00 IMPRESSION: 1. Indeterminate nuchal mass measuring at least 4 cm in the right paracentral anterior lower neck. Further evaluation with contrast CT of the neck recommended. 2. A 0.5 cm right middle lobar pulmonary nodule. Recommend 1 year surveillance. Soft Tissue Neck CT 08/28/16 00:00 IMPRESSION: NO SIGNIFICANT FINDING IN THE SOFT TISSUES OF THE NECK. Qualifiers PATEINT BEING DISCHARGED WITH ANY OF THE FOLLOWING DIAGNOSIS?: No Plan Discharge Plan: Patient is discharged home in stable condition. Will follow with his primary care doctor in the next 2 weeks. He will need follow-up of his right submandibular lymphadenopathy make certain this is resolved. He is to follow- up with the phone screener this week for the lesion on his nose. Time Spent: Greater than 30 Minutes
[2016-08-31] MEDS ORDERED: AZITHROMYCIN 250 MG TABLET PO ONE (11:00)
== END 2016-08-31 12:49 | disposition home or self-care (01) | DRG 190 ==
LOC: ER 21:03 → EH 08-28 00:43 → 4S 08-28 11:55 → OBSVTOIN 08-28 17:29
PROVIDERS: ADMIT Internal Medicine; ATTEND Internal Medicine
DX: J44.0 Chronic obstructive pulmonary disease with (acute) lower respiratory infection (principal); J18.9 Pneumonia, unspecified organism; J44.1 Chronic obstructive pulmonary disease with (acute) exacerbation; I45.10 Unspecified right bundle-branch block; I10 Essential (primary) hypertension; G47.33 Obstructive sleep apnea (adult) (pediatric); F10.20 Alcohol dependence, uncomplicated; L98.499 Non-pressure chronic ulcer of skin of other sites with unspecified severity; R59.1 Generalized enlarged lymph nodes; F17.210 Nicotine dependence, cigarettes, uncomplicated; E66.01 Morbid (severe) obesity due to excess calories; Z60.2 Problems related to living alone; Z68.30 Body mass index [BMI] 30.0-30.9, adult; Z86.711 Personal history of pulmonary embolism; Z91.19 Patient's noncompliance with other medical treatment and regimen
CPT/HCPCS: 36415; 36600; 70491; 71010; 71250; 80048; 80307; 82550; 82553; 82803; 83880; 84484; 85025; 93005; 93010; 94640; 94660; 94667; 94668; 94799; 96361; 96365; 99291; J0456; J0696; J1644; J2920; J3475; J3490; J7030; J7060; J7512; J7620

== ENCOUNTER 2016-10-17 12:24 | Inpatient (IN) | payer MEDICARE ==
[2016-10-17] MEDS ORDERED: IPRATROPIUM/ALBUTEROL 0.5-2.5 MG/3 ML AMPUL NEB ONE (12:45)
[2016-10-17] MEDS ORDERED: METHYLPREDNISOLONE INJ 125 MG/2 ML SDV IV ONE (12:45)
[2016-10-17] MEDS: MAGNESIUM SULFATE/D5W 100 ML IV SCH ×2 (12:51→14:16)
--- NOTE | 2016-10-17 13:16 | ER Document Report ---
ED Respiratory Problem - General Mode of Arrival: Medic Information source: Patient TRAVEL OUTSIDE OF THE [place] IN LAST 30 DAYS: No - HPI Patient complains to provider of: COPD, Short of breath Initiating Event: Exertion Chest pain/discomfort: Heaviness Associated symptoms: Other - see above <JULIOCESAR HANKS - Last Filed: 10/17/16 14:57> <MINISTERIO LARES - Last Filed: 10/17/16 19:02> - General Stated Complaint: SHORTNESS OF BREATH Time Seen by Provider: 10/17/16 12:31 Notes: Patient is a 71 year old male who presents to the ED with complaints of difficulty breathing with onset this morning. Patient states he also has a heavy feeling in his chest. Patient states his SOB is worse with exertion. Patient has not taken any breathing treatments today at home but states he did get some while en route to the ED. Patient was not stung or bit by an insect and did not feel like his throat was closing. (JULIOCESAR HANKS) - Related Data Allergies/Adverse Reactions: No Known Allergies Allergy (Verified 11/30/12 09:32) Home Medications: Current Home Medications No Home Medications 10/17/16 [History] Past Medical History - General Information source: Patient - Social History Smoking Status: Unknown if Ever Smoked Family History: COPD - Past Medical History Cardiac Medical History: Reports: Hx Hypertension, Hx Pulmonary Embolism Pulmonary Medical History: Reports: Hx COPD Musculoskeltal Medical History: Reports Hx Arthritis Psychiatric Medical History: Reports: Hx Depression Past Surgical History: Reports: Hx Abdominal Surgery - Hernia, Hx Orthopedic Surgery - bilateral knees - Immunizations Hx Diphtheria, Pertussis, Tetanus Vaccination: No - unknown date Hx Pneumococcal Vaccination: 12/09/11 <JULIOCESAR HANKS - Last Filed: 10/17/16 14:57> Review of Systems - Review of Systems Constitutional: No symptoms reported EENT: No symptoms reported Cardiovascular: See HPI, Chest pain - heaviness Respiratory: See HPI, Short of breath Gastrointestinal: No symptoms reported Genitourinary: No symptoms reported Male Genitourinary: No symptoms reported Musculoskeletal: No symptoms reported Skin: No symptoms reported Hematologic/Lymphatic: No symptoms reported Neurological/Psychological: No symptoms reported <JULIOCESAR HANKS - Last Filed: 10/17/16 14:57> Physical Exam - General General appearance: Alert In distress: Moderate - HEENT Head: Normocephalic, Atraumatic Eyes: Normal Extraocular movements intact: Yes Pupils: PERRL - Respiratory Respiratory status: Tachypnea Breath sounds: Decreased air movement, Wheezing - bilaterally - Cardiovascular Rhythm: Regular Heart sounds: Normal auscultation Murmur: No - Abdominal Inspection: Obese Tenderness: Nontender - Extremities General upper extremity: Normal ROM, Other - see skin exam General lower extremity: Normal inspection, Normal ROM - Neurological Neuro grossly intact: Yes - Psychological Associated symptoms: Normal affect, Normal mood - Skin Skin Temperature: Warm Skin Moisture: Dry Skin Color: Normal Skin irregularity: other - area on right arm distal to lateral elbow that has some fluctance and surrounding erythema <JULIOCESAR HANKS - Last Filed: 10/17/16 14:57> Course - Laboratory Result Diagrams: 10/17/16 13:42 10/17/16 13:42 - Consults Dr. Mojica Time consulted: 14:55 Consulted provider: will see as inpatient <JULIOCESAR HANKS - Last Filed: 10/17/16 14:57> - Laboratory Result Diagrams: 10/17/16 13:42 10/17/16 13:42 <MINISTERIO LARES - Last Filed: 10/17/16 19:02> - Re-evaluation Re-evalutation: 10/17/16 Patient is a 71-year-old male with a history of COPD who comes in with difficulty breathing. Patient was given nebulizer treatment, steroids, and magnesium. Continue to have tachypnea and wheezing and was placed on BiPAP. No evidence for pneumonia on chest x-ray. Patient also has an area that appears to be an early abscess. Drainable at this time. He also has some surrounding erythema for doxycycline will be started which will cover both his skin in his lungs. Patient understands and agrees with this plan. Stable at time of admission. (MINISTERIO LARES) - Vital Signs Vital signs: Temp Pulse Resp BP Pulse Ox 98.0 F 91 20 160/81 H 94 10/17/16 18:58 10/17/16 18:58 10/17/16 18:58 10/17/16 18:58 10/17/16 18:58 - Laboratory Laboratory results interpreted by me: 08/12/2410/17/16 10/17/16 13:42 13:42 13:42 MCV 98 H RDW 14.3 H D-Dimer 1.58 H Lactic Acid 2.4 H Ur Leukocyte Esterase 10/17/16 13:45 MCV RDW D-Dimer Lactic Acid Ur Leukocyte Esterase TRACE H - Consults Dr. Mojica Reason for consultation: 10/17/16 14:55 Discussed patient. Patient is accepted for admission. Patient will be started on antibiotics for his abscess. (JULIOCESAR HANKS) Critical Care Note - Critical Care Note Total time excluding time spent on procedures (mins): 35 - Patient is management of respiratory distress, multiple re-evaluations, initiation of BiPAP , consultation with hospitalist, coordination of admission, counseling patient <MINISTERIO LARES - Last Filed: 10/17/16 19:02> Discharge <JULIOCESAR HANKS - Last Filed: 10/17/16 14:57> - Discharge Admitting Provider: Lori Mojica Unit Admitted: [facility] <MINISTERIO LARES - Last Filed: 10/17/16 19:02> - Discharge Clinical Impression: COPD exacerbation, Abscess of forearm, right, Respiratory distress Condition: Stable Disposition: ADMITTED INPATIENT Scribe Attestation: 10/17/16 19:02 I personally performed the services described in the documentation, reviewed and edited the documentation which was dictated to the scribe in my presence, and it accurately records my words and actions. (MINISTERIO LARES) Scribe Documentation - Scribe Written by Skyla:: skyla Paiz, 10/17/2016, 1311 acting as scribe for :: Nikki <JULIOCESAR HANKS - Last Filed: 10/17/16 14:57>
--- NOTE | 2016-10-17 13:25 | EKG REPORT ---
SEVERITY:- ABNORMAL ECG - SINUS RHYTHM NONSPECIFIC T ABNORMALITIES, INFERIOR LEADS : Confirmed by: Elba Hinds 17-Oct-2016 13:24:44
[2016-10-17 14:02] LABS: ABSOLUTE BASOPHILS # (AUTO) 0.1 10^3/uL (0.0-0.2); ABSOLUTE EOSINOPHILS # (AUTO) 0.1 10^3/uL (0.0-0.6); ABSOLUTE LYMPHOCYTES (AUTO) 1.4 10^3/uL (0.5-4.7); ABSOLUTE MONOCYTES (AUTO) 0.9 10^3/uL (0.1-1.4); ABSOLUTE NEUT (AUTO) 5.6 10^3/uL (1.7-8.2); BASOPHILS % (AUTO) 0.7 % (0-2); HEMATOCRIT 43.5 % (37.9-51.0); HEMOGLOBIN 14.8 g/dL (13.5-17.0); HGB HCT DIFFERENCE 0.9; LYMPHOCYTES % (AUTO) 17.7 % (13-45); MEAN CORPUSCULAR HEMOGLOBIN 33.3 pg (27.0-33.4); MEAN CORPUSCULAR HGB CONC 34.1 g/dL (32.0-36.0); MEAN CORPUSCULAR VOLUME 98 fl (80-97); MONOCYTES % (AUTO) 11.5 % (3-13); RED BLOOD COUNT 4.45 10^6/uL (4.35-5.55); RED CELL DISTRIBUTION WIDTH 14.3 % (11.5-14.0); SEGMENTED NEUTROPHILS % (AUTO) 69.1 % (42-78); WHITE BLOOD COUNT 8.1 10^3/uL (4.0-10.5)
[2016-10-17 14:03] LABS: VENOUS BLOOD BASE EXCESS 0.4 mmol/L; VENOUS BLOOD PCO2 45.4 mmHg (35-63); VENOUS BLOOD PH 7.38 (7.30-7.42)
[2016-10-17 14:10] LABS: PROTHROMBIN TIME 12.5 SEC (11.4-15.4)
--- NOTE | 2016-10-17 14:10 | RADIOLOGY REPORT (SQ) ---
EXAM DESCRIPTION: CHEST SINGLE VIEW COMPLETED DATE/TIME: 10/17/2016 1:57 pm REASON FOR STUDY: SOB COMPARISON: 08/27/2016 EXAM PARAMETERS: NUMBER OF VIEWS: One view. TECHNIQUE: Single frontal radiographic view of the chest acquired. RADIATION DOSE: NA LIMITATIONS: None. FINDINGS: LUNGS AND PLEURA: No opacities, masses or pneumothorax. No pleural effusion. Again there is evidence for obstructive lung disease. MEDIASTINUM AND HILAR STRUCTURES: No masses. Contour normal. HEART AND VASCULAR STRUCTURES: The configuration of the heart and mediastinal structures is unchanged . BONES: No acute findings. HARDWARE: None in the chest. OTHER: No other significant finding. IMPRESSION: No significant interval change. No acute changes. Obstructive lung disease. Other fin dings as noted above TECHNICAL DOCUMENTATION: JOB ID: [id number]
[2016-10-17 14:14] LABS: APPEARANCE,URINE SLIGHTLY-CLOUDY; BILIRUBIN,URINE NEGATIVE (NEGATIVE); GLUCOSE, URINE NEGATIVE (NEGATIVE); KETONES,URINE NEGATIVE (NEGATIVE); LEUKOCYTE ESTERASE,URINE TRACE (NEGATIVE); NITRITE,URINE NEGATIVE (NEGATIVE); PROTEIN,URINE NEGATIVE (NEGATIVE); URINE SPECIFIC GRAVITY 1.011; UROBILINOGEN,URINE NEGATIVE mg/dL (<2.0)
[2016-10-17 14:24] LABS: ALANINE AMINOTRANSFERASE 24 U/L (21-72); ALBUMIN 4.2 g/dL (3.5-5.0); ALKALINE PHOSPHATASE 82 U/L (38-126); ANION GAP 10 (5-19); ASPARTATE AMINO TRANSFERASE 23 U/L (17-59); BILIRUBIN,DIRECT 0.4 mg/dL (0.0-0.4); BILIRUBIN,TOTAL 0.8 mg/dL (0.2-1.3); BLOOD UREA NITROGEN 10 mg/dL (7-20); CALCIUM 9.3 mg/dL (8.4-10.2); CARBON DIOXIDE 27 mmol/L (22-30); CHLORIDE 102 mmol/L (98-107); CREATINE KINASE 78 U/L (55-170); CREATININE RESULT 0.74 mg/dL (0.52-1.25); GLUCOSE 98 mg/dL (75-110); POTASSIUM 4.1 mmol/L (3.6-5.0); SODIUM 139.4 mmol/L (137-145); TOTAL PROTEIN 7.3 g/dL (6.3-8.2)
[2016-10-17 14:36] LABS: TROPONIN I < 0.012 ng/mL
[2016-10-17] MEDS ORDERED: DOXYCYCLINE HYCLATE INJ 100 MG VIAL IV ONE (14:56)
[2016-10-17] MEDS ORDERED: OXYCODONE-ACETAMINOPHEN 5-325 MG TABLET PO PRN (15:20)
[2016-10-17] MEDS ORDERED: ONDANSETRON HCL INJ/PF 4 MG/2 ML SDV IV PRN (15:20)
[2016-10-17] MEDS ORDERED: MAGNESIUM HYDROXIDE SUSP 30 ML UDCUP PO PRN (15:20)
[2016-10-17] MEDS ORDERED: ALBUTEROL SULFATE 0.083% NEB 2.5 MG/3 ML AMPUL NEB PRN (15:20)
[2016-10-17] MEDS ORDERED: ACETAMINOPHEN 325 MG TABLET PO PRN (15:20)
--- NOTE | 2016-10-17 15:38 | PDOC H&P ---
History of Present Illness Admission Date/PCP: 10/17/2016 no PCP Patient complains of: worsening soa History of Present Illness: SYD SADLER is a 71 year old male with known COPD presents from home with sudden worsening of his SOA that has been building for a day or two and feels like if he just had rescue inhalers at home he could avoid coming to the hospital. he has not found a PCP due to financial issues and therefore cannot keep refills for his meds. He reports sudden worsening of wheezing, increased work of breathing, chest tightness, exercise intolerance, nonproductive cough. he denies chest pain, palpitations, fevers/chills, purulent phlegm, n/v/d, sick contacts, recent travel, sedentary lifestyle, claudication or calf pain. eval in ED found him tripoding with significantly increased WOB that seems to have responded to BiPAP, systemic steroids, IV mag and multiple nebs. he has not returned to baseline and so we were asked to admit for further eval and amaangegment. Past Medical History Cardiac Medical History: Reports: Hypertension, Pulmonary Embolism Pulmonary Medical History: Reports: Chronic Obstructive Pulmonary Disease (COPD) , Pneumonia Musculoskeltal Medical History: Reports: Arthritis Psychiatric Medical History: Reports: Depression Past Surgical History Past Surgical History: Reports: Orthopedic Surgery - bilateral knees Social History Information Source: Patient Lives with: Alone Smoking Status: Current Every Day Smoker Cigarettes Packs Per Day: 1 Frequency of Alcohol Use: Rare Hx Recreational Drug Use: No Drugs: None Hx Prescription Drug Abuse: No - Advance Directive Resuscitation Status: Full Code Family History Family History: COPD Parental Family History Reviewed: Yes Children Family History Reviewed: Yes Sibling(s) Family History Reviewed.: Yes Medication/Allergy Allergies/Adverse Reactions: No Known Allergies Allergy (Verified 11/30/12 09:32) Review of Systems All systems: reviewed and no additional remarkable complaints except as stated - all systems reviewed, see HPI, remaining systems negative Physical Exam Vital Signs: Temp Pulse Resp BP Pulse Ox 98.2 F 85 11 L 135/80 H 96 10/17/16 12:44 10/17/16 12:44 10/17/16 15:00 10/17/16 13:02 10/17/16 15:00 Intake & Output 10/16/16 10/17/16 10/18/16 06:59 06:59 06:59 Weight 90.718 kg General appearance: PRESENT: no acute distress, well-developed, well-nourished Head exam: PRESENT: atraumatic, normocephalic Eye exam: PRESENT: EOMI. ABSENT: conjunctival injection, scleral icterus Mouth exam: PRESENT: neck supple Neck exam: PRESENT: full ROM. ABSENT: JVD, lymphadenopathy Respiratory exam: PRESENT: decreased breath sounds. ABSENT: accessory muscle use, rales, rhonchi, wheezes Cardiovascular exam: PRESENT: RRR. ABSENT: systolic murmur Pulses: PRESENT: normal radial pulses, normal dorsalis pedis pul Vascular exam: PRESENT: normal capillary refill GI/Abdominal exam: PRESENT: normal bowel sounds, soft. ABSENT: tenderness Extremities exam: PRESENT: clubbing. ABSENT: calf tenderness, pedal edema Musculoskeletal exam: PRESENT: ambulatory, full ROM Neurological exam: PRESENT: alert, awake, oriented to person, oriented to place , oriented to time, oriented to situation Psychiatric exam: PRESENT: appropriate affect, normal mood Skin exam: PRESENT: dry, warm, other - Rt ulnar process scab with surrounding erythema and mild fluctuance, no discrete fluid collection that I can appreciate , no heat but very thender to touch Results Laboratory Results: 10/17/16 13:42 10/17/16 13:42 10/17/16 10/17/16 10/17/16 13:42 13:42 13:42 WBC 8.1 RBC 4.45 Hgb 14.8 Hct 43.5 MCV 98 H MCH 33.3 MCHC 34.1 RDW 14.3 H Plt Count 194 Seg Neutrophils % 69.1 Lymphocytes % 17.7 Monocytes % 11.5 Eosinophils % 1.0 Basophils % 0.7 Absolute Neutrophils 5.6 Absolute Lymphocytes 1.4 Absolute Monocytes 0.9 Absolute Eosinophils 0.1 Absolute Basophils 0.1 VBG pH VBG pCO2 VBG HCO3 VBG Base Excess Sodium 139.4 Potassium 4.1 Chloride 102 Carbon Dioxide 27 Anion Gap 10 BUN 10 Creatinine 0.74 Est GFR ( Amer) > 60 Est GFR (Non-Af Amer) > 60 Glucose 98 Lactic Acid 2.4 H Calcium 9.3 Total Bilirubin 0.8 AST 23 ALT 24 Alkaline Phosphatase 82 Total Protein 7.3 Albumin 4.2 Urine Color Urine Appearance Urine pH Ur Specific [place] Urine Protein Urine Glucose (UA) Urine Ketones Urine Blood Urine Nitrite Ur Leukocyte Esterase Urine WBC (Auto) Urine RBC (Auto) 10/17/16 10/17/16 13:42 13:45 WBC RBC Hgb Hct MCV MCH MCHC RDW Plt Count Seg Neutrophils % Lymphocytes % Monocytes % Eosinophils % Basophils % Absolute Neutrophils Absolute Lymphocytes Absolute Monocytes Absolute Eosinophils Absolute Basophils VBG pH 7.38 VBG pCO2 45.4 VBG HCO3 26.0 VBG Base Excess 0.4 Sodium Potassium Chloride Carbon Dioxide Anion Gap BUN Creatinine Est GFR ( Amer) Est GFR (Non-Af Amer) Glucose Lactic Acid Calcium Total Bilirubin AST ALT Alkaline Phosphatase Total Protein Albumin Urine Color YELLOW Urine Appearance SLIGHTLY-CLOUDY Urine pH 5.0 Ur Specific [place] 1.011 Urine Protein NEGATIVE Urine Glucose (UA) NEGATIVE Urine Ketones NEGATIVE Urine Blood NEGATIVE Urine Nitrite NEGATIVE Ur Leukocyte Esterase TRACE H Urine WBC (Auto) 3 Urine RBC (Auto) 1 10/17/16 10/17/16 13:42 13:42 Creatine Kinase 78 CK-MB (CK-2) 1.10 Troponin I < 0.012 Impressions: Chest X-Ray 10/17/16 12:32 IMPRESSION: No significant interval change. No acute changes. Obstructive lung disease. Other findings as noted above Status: Image reviewed by me - agree with rads Assessment & Plan - Diagnosis (1) COPD exacerbation Is this a current diagnosis for this admission?: YesPlan: admit for IV systemic steroids, scheduled and prn nebs, intermittent BiPAP, flutter valve (2) Abscess of forearm, right Is this a current diagnosis for this admission?: YesPlan: warm compresses to the elbow and empiric doxy, may need I&D if worsens (3) Tobacco abuse Is this a current diagnosis for this admission?: YesPlan: not interested in cessation at this time - Time Time Spent: 50 to 70 Minutes Medications reviewed and adjusted accordingly: Yes Anticipated discharge: Home Within: within 48 hours - Inpatient Certification Based on my medical assessment, after consideration of the patient's comorbidities, presenting symptoms, or acuity I expect that the services needed warrant INPATIENT care.: Yes I certify that my determination is in accordance with my understanding of Medicare's requirements for reasonable and necessary INPATIENT services [42 CFR 412.3e].: Yes Medical Necessity: Significant Comorbidiites Make Outpatient Treatment Too Risky , Need Close Monitoring Due to Risk of Patient Decompensation, Need for Nebulizer Therapy and Monitoring of Response, Risk of Complication if Not Cared For in Hospital
[2016-10-17] MEDS: IPRATROPIUM/ALBUTEROL 0.5-2.5 MG/3 ML AMPUL NEB SCH (16:22)
[2016-10-17] MEDS: METHYLPREDNISOLONE INJ 40 MG/1 ML SDV IV SCH (21:57)
[2016-10-17] MEDS: DOXYCYCLINE HYCLATE 100 MG TABLET PO SCH (21:57)
[2016-10-18] MEDS: IPRATROPIUM/ALBUTEROL 0.5-2.5 MG/3 ML AMPUL NEB SCH ×4 (00:28→23:40)
[2016-10-18] MEDS: METHYLPREDNISOLONE INJ 40 MG/1 ML SDV IV SCH ×2 (05:47→21:42)
--- NOTE | 2016-10-18 09:43 | RADIOLOGY REPORT (SQ) ---
EXAM DESCRIPTION: CTA CHEST COMPLETED DATE/TIME: 10/18/2016 9:26 am REASON FOR STUDY: hypoxia; eval for PE COMPARISON: CT chest 08/28/2016 TECHNIQUE: CT scan of the chest performed using helical scanning technique with dynamic intravenous contrast injection. Images reviewed with lung, soft tissue and bone windows. Reconstructed coronal and sagittal MPR images reviewed. Additional 3 dimensional post-processing performed to develop Maximal Intensity Projection images (CA P). All images stored on PACS. All CT scanners at this facility use dose modulation, iterative reconstruction, and/or weight based d osing when appropriate to reduce radiation dose to as low as reasonably achievable (ALARA). [facility]: Dose Right [facility]: CareDose [facility]: Dose Right [facility]: Teradose 4D [facility]: [email or web address] CONTRAST TYPE AND DOSE: contrast/concentration: Isovue 370.00 mg/ml; Total Contrast Delivered: 71.0 ml; Total Saline Delivered: 102.5 ml RENAL FUNCTION: Creatinine 0.74 RADIATION DOSE: Up-to-date CT equipment and radiation dose reduction techniques were employed. CTDIv ol: 13.8 - 16.9 mGy. DLP: 573 mGy-cm. . LIMITATIONS: None. FINDINGS: LUNGS AND PLEURA: No acute infiltrates. No pulmonary edema. No pleural effusions. No pn eumothorax. Stable left basilar atelectasis or scarring. Benign less than 5 mm pleural-based nodule right minor fissure axial image 41 of doubtful clinical significance. AORTA AND GREAT VESSELS: No aneurysm or dissection. HEART: No pericardial effusion. Calcified coronary arteries. PULMONARY ARTERIES: A small embolus is seen to the right lower lobe pulmonary artery on axial image 8 1 and coronal reconstruction images 62 through 64. HILAR AND MEDIASTINAL STRUCTURES: No identified masses or abnormal nodes. HARDWARE: None in the chest. UPPER ABDOMEN: No significant findings. Limited exam. THYROID AND OTHER SOFT TISSUES: No masses. No adenopathy. BONES: No acute or significant finding. 3D MIPS: Confirm above findings. OTHER: No other significant finding. IMPRESSION: Small pulmonary embolus to the right lower lobe pulmonary artery. COMMENT: Pertinent findings on the imaging study reported as a CRITICAL RESULT to WILBERT STEWARD MD at09:27 on 10/18/2016. Category of Critical Result: Acute right pulmonary embolus TECHNICAL DOCUMENTATION: JOB ID: [id number] Quality ID # [id number]: Final reports with documentation of one or more dose reduction techniques (e.g., Au tomated exposure control, adjustment of the mA and/or kV according to patient size, use of iterative reconstruction technique) 2010 [employer]- All Rights Reserved
[2016-10-18] MEDS ORDERED: ENOXAPARIN SODIUM INJ 40 MG/0.4 ML DISP.SYRIN SUBCUT SCH (10:00)
[2016-10-18] MEDS: DOXYCYCLINE HYCLATE 100 MG TABLET PO SCH ×2 (10:38→21:42)
[2016-10-18] MEDS ORDERED: ENOXAPARIN SODIUM INJ 100 MG/1 ML DISP.SYRIN SUBCUT ONE (11:00)
[2016-10-18 11:09] LABS: MEAN CORPUSCULAR HEMOGLOBIN 33.4 pg (27.0-33.4); MEAN CORPUSCULAR HGB CONC 34.2 g/dL (32.0-36.0); MEAN CORPUSCULAR VOLUME 98 fl (80-97); RED CELL DISTRIBUTION WIDTH 13.7 % (11.5-14.0); WHITE BLOOD COUNT 12.7 10^3/uL (4.0-10.5)
[2016-10-18 11:18] LABS: PROTHROMBIN TIME 12.4 SEC (11.4-15.4)
--- NOTE | 2016-10-18 11:47 | PDOC PROGRESS REPORT ---
Subjective Progress Note for:: 10/18/16 Subjective:: reason for visit: f/u [facility] course: SYD SADLER is a 71 year old male with known COPD presents from home with sudden worsening of his SOA that has been building for a day or two and feels like if he just had rescue inhalers at home he could avoid coming to the hospital. he has not found a PCP due to financial issues and therefore cannot keep refills for his meds. He reports sudden worsening of wheezing, increased work of breathing, chest tightness, exercise intolerance, nonproductive cough. he denies chest pain, palpitations, fevers/chills, purulent phlegm, n/v/d, sick contacts, recent travel, sedentary lifestyle, claudication or calf pain. eval in ED found him tripoding with significantly increased WOB that seems to have responded to BiPAP, systemic steroids, IV mag and multiple nebs. he has not returned to baseline and so we were asked to admit for further eval and amaangegment. he weaned off the BiPAP pretty quickly and this morning is 97% on RA for me though he still exhibits tachypnea and intercostal muscle use. His d-dimer was elevated and stat CTA chest shows a small PE likely accounting for his rapid decline. 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 he denies chest pain, palpitations, n/v/d; still c/o wheezing and breathlessness with even minimal movement and didn't sleep at all last night, seems a bit anxious this morning. ROS: all systems reviewed, see above, remaining systmes negative/. Physical Exam Vital Signs: Temp Pulse Resp BP Pulse Ox 97.8 F 89 14 179/95 H 97 10/18/16 07:49 10/18/16 07:50 10/18/16 07:50 10/18/16 07:49 10/18/16 07:50 Intake & Output 10/17/16 10/18/16 10/19/16 06:59 06:59 06:59 Intake Total 932 Output Total 975 Balance -43 Weight 91.4 kg General appearance: PRESENT: mild resp and emotional acute distress, well- developed, well-nourished Head exam: PRESENT: atraumatic, normocephalic Eye exam: PRESENT: EOMI. ABSENT: conjunctival injection, scleral icterus Mouth exam: PRESENT: neck supple Neck exam: PRESENT: full ROM. ABSENT: JVD, lymphadenopathy Respiratory exam: PRESENT: decreased breath sounds to the point they are nearly absent bilat, mild increased accessory muscle use; no rales, rhonchi, wheezes Cardiovascular exam: PRESENT: RRR. ABSENT: systolic murmur Pulses: PRESENT: normal radial pulses, normal dorsalis pedis pul Vascular exam: PRESENT: normal capillary refill GI/Abdominal exam: PRESENT: normal bowel sounds, soft. ABSENT: tenderness Extremities exam: PRESENT: clubbing. ABSENT: calf tenderness, pedal edema Musculoskeletal exam: PRESENT: ambulatory, full ROM Neurological exam: PRESENT: alert, awake, oriented to person, oriented to place , oriented to time, oriented to situation Psychiatric exam: PRESENT: appropriate affect, normal mood Skin exam: PRESENT: dry, warm, other - Rt ulnar process scab with surrounding erythema and mild fluctuance, no discrete fluid collection that I can appreciate , no heat and less tender to touch Results Laboratory Results: 10/18/16 10:55 10/17/16 10/18/16 18:55 10:55 WBC 12.7 H RBC 4.20 L Hgb 14.0 Hct 41.0 MCV 98 H MCH 33.4 MCHC 34.2 RDW 13.7 Plt Count 182 Lactic Acid 4.9 H Impressions: Chest X-Ray 10/17/16 12:32 IMPRESSION: No significant interval change. No acute changes. Obstructive lung disease. Other findings as noted above Chest/Abdomen CTA 10/18/16 00:00 IMPRESSION: Small pulmonary embolus to the right lower lobe pulmonary artery. Status: Imported from PACS Assessment & Plan - Diagnosis (1) Acute pulmonary embolus Qualifiers: Pulmonary embolism type: other Acute cor pulmonale presence: without acute cor pulmonale Qualified Code(s): I26.99 - Other pulmonary embolism without acute cor pulmonale Is this a current diagnosis for this admission?: YesPlan: start full dose lovenox as a bridge to therapeutic coumadin level (2) COPD exacerbation Is this a current diagnosis for this admission?: YesPlan: improved but not back to baseline; continue but wean back IV systemic steroids, scheduled and prn nebs, intermittent BiPAP, flutter valve (3) Abscess of forearm, right Is this a current diagnosis for this admission?: YesPlan: stable; warm compresses to the elbow and empiric doxy, may need I&D if worsens (4) Tobacco abuse Is this a current diagnosis for this admission?: Yes - Time Time Spent with patient: 25-34 minutes Medications reviewed and adjusted accordingly: Yes
--- NOTE | 2016-10-18 15:31 | RADIOLOGY REPORT (SQ) ---
EXAM DESCRIPTION: VENOUS BILATERAL LOWER COMPLETED DATE/TIME: 10/18/2016 3:24 pm REASON FOR STUDY: DVT COMPARISON: None. TECHNIQUE: Dynamic and static salgado scale and color images acquired of both lower extremity venous sy stems. Selected spectral images acquired with additional compression and augmentation maneuvers. Imag es stored on PACS. LIMITATIONS: None. FINDINGS: RIGHT LEG COMMON FEMORAL AND FEMORAL: Normal phasicity, compression and augmentation. No visualized echogenic m aterial on salgado scale. No defects on color images. POPLITEAL: Normal compression and augmentation. No visualized echogenic material on salgado scale. No de fects on color images. CALF VESSELS: Normal compression and augmentation. No visualized echogenic material on salgado scale. No defects on color image. Please note that the right peroneal veins were not well-visualized. GSV AND SSV: Normal compression. No visualized echogenic material on salgado scale. No defects on color images. ANY DEEP VENOUS INSUFFICIENCY: Not evaluated. ANY EVIDENCE OF POPLITEAL CYST: No. OTHER: No other significant finding. LEFT LEG COMMON FEMORAL AND FEMORAL: Normal phasicity, compression and augmentation. No visualized echogenic m aterial on salgado scale. No defects on color images. POPLITEAL: Normal compression and augmentation. No visualized echogenic material on salgado scale. No de fects on color images. CALF VESSELS: Normal compression and augmentation. No visualized echogenic material on salgado scale. No defects on color images. GSV AND SSV: Normal compression. No visualized echogenic material on salgado scale. No defects on color images. ANY DEEP VENOUS INSUFFICIENCY: Not evaluated. ANY EVIDENCE POPLITEAL CYST: No. OTHER: No other significant finding. IMPRESSION: NO EVIDENCE DVT OR SVT IN EITHER LEG. TECHNICAL DOCUMENTATION: JOB ID: [id number] [employer]- All Rights Reserved
[2016-10-18] MEDS: WARFARIN SODIUM 5 MG TABLET PO SCH (21:42)
[2016-10-18] MEDS: ENOXAPARIN SODIUM INJ 100 MG/1 ML DISP.SYRIN SUBCUT SCH (21:42)
[2016-10-18] MEDS: ALPRAZOLAM 0.5 MG TABLET PO PRN (21:43)
[2016-10-18] MEDS ORDERED: ENOXAPARIN SODIUM INJ 100 MG/1 ML DISP.SYRIN SUBCUT SCH (22:00)
[2016-10-19 05:43] LABS: PROTHROMBIN TIME 12.8 SEC (11.4-15.4)
[2016-10-19 06:02] LABS: APPEARANCE,URINE CLEAR; BILIRUBIN,URINE NEGATIVE (NEGATIVE); GLUCOSE, URINE NEGATIVE (NEGATIVE); KETONES,URINE NEGATIVE (NEGATIVE); LEUKOCYTE ESTERASE,URINE NEGATIVE (NEGATIVE); NITRITE,URINE NEGATIVE (NEGATIVE); PROTEIN,URINE NEGATIVE (NEGATIVE); URINE SPECIFIC GRAVITY 1.017; UROBILINOGEN,URINE NEGATIVE mg/dL (<2.0)
[2016-10-19] MEDS: IPRATROPIUM/ALBUTEROL 0.5-2.5 MG/3 ML AMPUL NEB SCH ×2 (08:21→16:13)
--- NOTE | 2016-10-19 10:06 | PDOC PROGRESS REPORT ---
Subjective Progress Note for:: 10/19/16 Subjective:: reason for visit: f/u [facility]: SYD SADLER is a 71 year old male with known COPD presents from home with sudden worsening of his SOA that has been building for a day or two and feels like if he just had rescue inhalers at home he could avoid coming to the hospital. he has not found a PCP due to financial issues and therefore cannot keep refills for his meds. He reports sudden worsening of wheezing, increased work of breathing, chest tightness, exercise intolerance, nonproductive cough. he denies chest pain, palpitations, fevers/chills, purulent phlegm, n/v/d, sick contacts, recent travel, sedentary lifestyle, claudication or calf pain. eval in ED found him tripoding with significantly increased WOB that seems to have responded to BiPAP, systemic steroids, IV mag and multiple nebs. he has not returned to baseline and so we were asked to admit for further eval and amaangegment. he weaned off the BiPAP pretty quickly and this morning is 97% on RA for me though he still exhibits tachypnea and intercostal muscle use. His d-dimer was elevated and stat CTA chest shows a small PE likely accounting for his rapid decline. 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 dopplers here were negative for DVT. he denies chest pain, palpitations, n/v/d; still c/o wheezing and breathlessness with even minimal movement and didn't sleep at all last night, no coughing more but still nonproductive. ROS: all systems reviewed, see above, remaining systems negative. Physical Exam Vital Signs: Temp Pulse Resp BP Pulse Ox 97.5 F 64 20 146/97 H 98 10/19/16 07:10 10/19/16 07:10 10/19/16 07:10 10/19/16 07:10 10/19/16 07:10 Intake & Output 10/18/16 10/19/16 10/20/16 06:59 06:59 06:59 Intake Total 932 2122 Output Total 975 850 Balance -43 1272 Weight 91.4 kg 94.9 kg General appearance: PRESENT:no acute distress, well-developed, well-nourished Head exam: PRESENT: atraumatic, normocephalic Eye exam: PRESENT: EOMI. ABSENT: conjunctival injection, scleral icterus Mouth exam: PRESENT: neck supple Neck exam: PRESENT: full ROM. ABSENT: JVD, lymphadenopathy Respiratory exam: PRESENT: decreased breath sounds to the point they are nearly absent bilat, no accessory muscle use; no rales or rhonchi; bilat mild exp wheezes Cardiovascular exam: PRESENT: RRR. ABSENT: systolic murmur Pulses: PRESENT: normal radial pulses, normal dorsalis pedis pul Vascular exam: PRESENT: normal capillary refill GI/Abdominal exam: PRESENT: normal bowel sounds, soft. ABSENT: tenderness Extremities exam: PRESENT: clubbing. ABSENT: calf tenderness, pedal edema Musculoskeletal exam: PRESENT: ambulatory, full ROM Neurological exam: PRESENT: alert, awake, oriented to person, oriented to place , oriented to time, oriented to situation Psychiatric exam: PRESENT: appropriate affect, normal mood Skin exam: PRESENT: dry, warm, other - Rt ulnar process scab with surrounding erythema and mild fluctuance, no discrete fluid collection that I can appreciate , no heat and less tender to touch Results Laboratory Results: 10/18/16 10:55 10/18/16 10/19/16 10/19/16 10:55 04:39 08:35 WBC 12.7 H RBC 4.20 L Hgb 14.0 Hct 41.0 MCV 98 H MCH 33.4 MCHC 34.2 RDW 13.7 Plt Count 182 Urine Color YELLOW Urine Appearance CLEAR Urine pH 6.0 Ur Specific [place] 1.017 Urine Protein NEGATIVE Urine Glucose (UA) NEGATIVE Urine Ketones NEGATIVE Urine Blood SMALL H Urine Nitrite NEGATIVE Ur Leukocyte Esterase NEGATIVE Urine WBC (Auto) 1 Urine RBC (Auto) 0 Stool Occult Blood NEGATIVE Impressions: Venous Doppler Study 10/18/16 00:00 IMPRESSION: NO EVIDENCE DVT OR SVT IN EITHER LEG. Assessment & Plan - Diagnosis (1) Acute pulmonary embolus Qualifiers: Pulmonary embolism type: other Acute cor pulmonale presence: without acute cor pulmonale Qualified Code(s): I26.99 - Other pulmonary embolism without acute cor pulmonale Is this a current diagnosis for this admission?: YesPlan: stable; continue full dose lovenox as a bridge to therapeutic coumadin level. daily INR. no financial resources for one of he newer agents and Medicare part A prevents participation in free clinic but no Rx drug coverage. (2) COPD exacerbation Is this a current diagnosis for this admission?: YesPlan: improved but not back to baseline; continue IV systemic steroids, scheduled and prn nebs, intermittent BiPAP, flutter valve and doxycycline (3) Abscess of forearm, right Is this a current diagnosis for this admission?: YesPlan: stable; warm compresses to the elbow and empiric doxy, may need I&D if worsens (4) Tobacco abuse Is this a current diagnosis for this admission?: Yes - Time Time Spent with patient: 25-34 minutes - Plan Summary Plan Summary: social work to re-evaluate on friday for outpt coumadin management
[2016-10-19] MEDS: DOXYCYCLINE HYCLATE 100 MG TABLET PO SCH ×2 (10:09→21:34)
[2016-10-19] MEDS: ENOXAPARIN SODIUM INJ 100 MG/1 ML DISP.SYRIN SUBCUT SCH ×2 (10:09→21:34)
[2016-10-19] MEDS: METHYLPREDNISOLONE INJ 40 MG/1 ML SDV IV SCH ×2 (10:09→21:34)
[2016-10-19] MEDS: WARFARIN SODIUM 5 MG TABLET PO SCH (21:34)
[2016-10-20] MEDS: IPRATROPIUM/ALBUTEROL 0.5-2.5 MG/3 ML AMPUL NEB SCH ×3 (00:21→16:03)
[2016-10-20 05:39] LABS: PROTHROMBIN TIME 12.5 SEC (11.4-15.4)
[2016-10-20] MEDS: ENOXAPARIN SODIUM INJ 100 MG/1 ML DISP.SYRIN SUBCUT SCH ×2 (09:55→21:31)
[2016-10-20] MEDS: DOXYCYCLINE HYCLATE 100 MG TABLET PO SCH ×2 (09:55→21:31)
[2016-10-20] MEDS: METHYLPREDNISOLONE INJ 40 MG/1 ML SDV IV SCH (09:55)
[2016-10-20] MEDS: ALPRAZOLAM 0.5 MG TABLET PO PRN (09:57)
--- NOTE | 2016-10-20 10:45 | PDOC PROGRESS REPORT ---
Subjective Progress Note for:: 10/20/16 Subjective:: reason for visit: f/u [facility]: SYD SADLER is a 71 year old male with known COPD presents from home with sudden worsening of his SOA that has been building for a day or two and feels like if he just had rescue inhalers at home he could avoid coming to the hospital. he has not found a PCP due to financial issues and therefore cannot keep refills for his meds. He reports sudden worsening of wheezing, increased work of breathing, chest tightness, exercise intolerance, nonproductive cough. he denies chest pain, palpitations, fevers/chills, purulent phlegm, n/v/d, sick contacts, recent travel, sedentary lifestyle, claudication or calf pain. eval in ED found him tripoding with significantly increased WOB that seems to have responded to BiPAP, systemic steroids, IV mag and multiple nebs. he has not returned to baseline and so we were asked to admit for further eval and amaangegment. he weaned off the BiPAP pretty quickly and remains on RA with good sats though he still exhibits tachypnea and intercostal muscle use with exertion. His d- dimer was elevated and stat CTA chest shows a small PE likely accounting for his rapid decline. 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 dopplers here were negative for DVT. he denies chest pain, palpitations, n/v/d; still c/o wheezing, dry hacking cough and breathlessness with even minimal movement and didn't sleep again last night ROS: all systems reviewed, see above, remaining systems negative. Physical Exam Vital Signs: Temp Pulse Resp BP Pulse Ox 97.6 F 64 20 149/79 H 95 10/20/16 07:09 10/20/16 07:09 10/20/16 07:09 10/20/16 07:09 10/20/16 07:09 Intake & Output 10/19/16 10/20/16 10/21/16 06:59 06:59 06:59 Intake Total 2122 2174 Output Total 850 Balance 1272 2174 Weight 94.9 kg 93.8 kg General appearance: PRESENT:no acute distress, well-developed, well-nourished Head exam: PRESENT: atraumatic, normocephalic Eye exam: PRESENT: EOMI. ABSENT: conjunctival injection, scleral icterus Neck exam: PRESENT: full ROM. ABSENT: JVD, lymphadenopathy Respiratory exam: PRESENT: decreased breath sounds to the point they are nearly absent bilat, no accessory muscle use; no rales or rhonchi; bilat mild exp wheezes Cardiovascular exam: PRESENT: RRR. ABSENT: systolic murmur Pulses: PRESENT: normal radial pulses, normal dorsalis pedis pul Vascular exam: PRESENT: normal capillary refill GI/Abdominal exam: PRESENT: normal bowel sounds, soft. ABSENT: tenderness Extremities exam: PRESENT: clubbing. ABSENT: calf tenderness, pedal edema Musculoskeletal exam: PRESENT: ambulatory, full ROM Neurological exam: PRESENT: alert, awake, oriented to person, oriented to place , oriented to time, oriented to situation Psychiatric exam: PRESENT: appropriate affect, normal mood Skin exam: PRESENT: dry, warm, Rt elbow improved Results Laboratory Results: 10/18/16 10:55 Assessment & Plan - Diagnosis (1) Acute pulmonary embolus Qualifiers: Pulmonary embolism type: other Acute cor pulmonale presence: without acute cor pulmonale Qualified Code(s): I26.99 - Other pulmonary embolism without acute cor pulmonale Is this a current diagnosis for this admission?: YesPlan: stable; continue full dose lovenox as a bridge to therapeutic coumadin level. ck daily INR. no financial resources for any of the newer agents and Medicare part A prevents participation in free clinic and no Rx drug coverage. needs to meet again with healthcare social worker to clarify who will f/u his INR and manage his coumadin. (2) COPD exacerbation Is this a current diagnosis for this admission?: YesPlan: improved but not back to baseline; change systemic steroids to oral, d/c scheduled and continue prn nebs, intermittent BiPAP, flutter valve and doxycycline (3) Abscess of forearm, right Is this a current diagnosis for this admission?: YesPlan: stable; dry dressings to the elbow and empiric doxy (4) Tobacco abuse Is this a current diagnosis for this admission?: Yes - Time Time Spent with patient: 15-24 minutes Medications reviewed and adjusted accordingly: Yes Anticipated discharge: Home - when his INR is therapeutic, he cannot afford lovenox as outpt
[2016-10-20] MEDS: WARFARIN SODIUM 5 MG TABLET PO SCH (21:31)
[2016-10-21] MEDS: IPRATROPIUM/ALBUTEROL 0.5-2.5 MG/3 ML AMPUL NEB SCH ×4 (00:21→23:53)
[2016-10-21 06:11] LABS: HEMATOCRIT 39.6 % (37.9-51.0); HEMOGLOBIN 13.4 g/dL (13.5-17.0); HGB HCT DIFFERENCE 0.6; MEAN CORPUSCULAR HEMOGLOBIN 33.5 pg (27.0-33.4); MEAN CORPUSCULAR HGB CONC 33.8 g/dL (32.0-36.0); MEAN CORPUSCULAR VOLUME 99 fl (80-97); RED CELL DISTRIBUTION WIDTH 13.9 % (11.5-14.0); WHITE BLOOD COUNT 10.4 10^3/uL (4.0-10.5)
[2016-10-21 06:16] LABS: PROTHROMBIN TIME 15.1 SEC (11.4-15.4)
[2016-10-21] MEDS: ENOXAPARIN SODIUM INJ 100 MG/1 ML DISP.SYRIN SUBCUT SCH ×2 (09:44→21:12)
[2016-10-21] MEDS: PREDNISONE 20 MG TABLET PO SCH (09:44)
[2016-10-21] MEDS: DOXYCYCLINE HYCLATE 100 MG TABLET PO SCH ×2 (09:45→21:11)
--- NOTE | 2016-10-21 12:58 | PDOC PROGRESS REPORT ---
Subjective Progress Note for:: 10/21/16 Subjective:: Patient complains that his remote isn't working and that he wants a razor to shave. Patient does note some productive cough without purulence. Patient denies chest pain, shortness of breath, abdominal pain, nausea, vomiting , fevers, chills, diarrhea, constipation, headache, new onset weakness. Physical Exam Vital Signs: Temp Pulse Resp BP Pulse Ox 98.0 F 71 14 133/68 H 96 10/21/16 04:38 10/21/16 04:38 10/21/16 04:38 10/21/16 04:38 10/21/16 04:38 Intake & Output 10/20/16 10/21/16 10/22/16 06:59 06:59 06:59 Intake Total 2174 2251 Balance 2174 2251 Weight 93.8 kg 91.9 kg Exam: GENERAL: No acute distress, A+Ox3 HEENT: Conjunctiva clear, nonicteric, moist mucous membranes, no JVD, midline trachea RESPIRATORY: Prolonged expiratory phase, Clear to auscultation bilaterally CARDIAC: Regular rate and rhythm, no murmurs/gallops/rubs ABDOMEN: soft, NTTP, ND, active bowel sounds, no rebound, no rigidity, no guarding EXTREMETIES: no cyanosis, no clubbing, no edema NEUROLOGIC: Alert, oriented to person, place, time, CN's grossly intact, no focal deficits PSYCH: Normal mood and affect Results Laboratory Results: 10/21/16 05:26 10/21/16 05:26 WBC 10.4 RBC 4.00 L Hgb 13.4 L Hct 39.6 MCV 99 H MCH 33.5 H MCHC 33.8 RDW 13.9 Plt Count 180 Impressions: Chest X-Ray 10/17/16 12:32 IMPRESSION: No significant interval change. No acute changes. Obstructive lung disease. Other findings as noted above Chest/Abdomen CTA 10/18/16 00:00 IMPRESSION: Small pulmonary embolus to the right lower lobe pulmonary artery. Venous Doppler Study 10/18/16 00:00 IMPRESSION: NO EVIDENCE DVT OR SVT IN EITHER LEG. Assessment & Plan - Diagnosis (1) Acute pulmonary embolus Qualifiers: Pulmonary embolism type: other Acute cor pulmonale presence: without acute cor pulmonale Qualified Code(s): I26.99 - Other pulmonary embolism without acute cor pulmonale Is this a current diagnosis for this admission?: YesPlan: Continue patient on coumadin and lovenox. Patient will require inpatient status while INR is becoming theraputic. Discharge planning has been consulted. Patient has been educated on coumadin diet. Patient reports history of DVT in the past and has been on coumadin previously. (2) Alcohol dependence Qualifiers: Substance use status: uncomplicated Qualified Code(s): F10.20 - Alcohol dependence, uncomplicated Is this a current diagnosis for this admission?: YesPlan: Continue thiamine and folic acid. Monitor for signs of withdrawal. (3) COPD exacerbation Is this a current diagnosis for this admission?: YesPlan: Continue prednisone and nebulized treatments. (4) Tobacco abuse Is this a current diagnosis for this admission?: YesPlan: Offered nicotine patch and declined. Advised to stop smoking. (5) Pleural nodule Is this a current diagnosis for this admission?: YesPlan: Recommend patient follow up on this in 6 months with a repeat CTA - Time Time Spent with patient: 25-34 minutes Medications reviewed and adjusted accordingly: Yes Anticipated discharge: Home Within: Other - when INR theraputic
[2016-10-21 13:02] LABS: APPEARANCE,URINE CLEAR; BILIRUBIN,URINE NEGATIVE (NEGATIVE); GLUCOSE, URINE NEGATIVE (NEGATIVE); KETONES,URINE NEGATIVE (NEGATIVE); LEUKOCYTE ESTERASE,URINE NEGATIVE (NEGATIVE); NITRITE,URINE NEGATIVE (NEGATIVE); PROTEIN,URINE NEGATIVE (NEGATIVE); URINE SPECIFIC GRAVITY 1.021; UROBILINOGEN,URINE NEGATIVE mg/dL (<2.0)
[2016-10-21] MEDS: WARFARIN SODIUM 5 MG TABLET PO SCH (21:11)
[2016-10-22 05:12] LABS: PROTHROMBIN TIME 16.8 SEC (11.4-15.4)
[2016-10-22] MEDS: IPRATROPIUM/ALBUTEROL 0.5-2.5 MG/3 ML AMPUL NEB SCH ×3 (08:09→23:28)
[2016-10-22] MEDS: ENOXAPARIN SODIUM INJ 100 MG/1 ML DISP.SYRIN SUBCUT SCH ×2 (09:51→21:24)
[2016-10-22] MEDS: PREDNISONE 20 MG TABLET PO SCH (09:51)
[2016-10-22] MEDS: DOXYCYCLINE HYCLATE 100 MG TABLET PO SCH ×2 (09:51→21:24)
--- NOTE | 2016-10-22 15:23 | PDOC PROGRESS REPORT ---
Subjective Progress Note for:: 10/22/16 Subjective:: Patient has no new complaints. Patient does note some productive cough without purulence. Patient denies chest pain, shortness of breath, abdominal pain, nausea, vomiting , fevers, chills, diarrhea, constipation, headache, new onset weakness. Physical Exam Vital Signs: Temp Pulse Resp BP Pulse Ox 98.5 F 72 18 131/78 H 92 10/22/16 10:58 10/22/16 10:58 10/22/16 10:58 10/22/16 10:58 10/22/16 10:58 Intake & Output 10/21/16 10/22/16 10/23/16 06:59 06:59 06:59 Intake Total 2251770 Balance 2250 1770 2067 Weight 91.9 kg 93.9 kg Exam: GENERAL: No acute distress, A+Ox3 HEENT: AT/NC, Conjunctiva clear, nonicteric, moist mucous membranes, no JVD, midline trachea RESPIRATORY: Prolonged expiratory phase, Clear to auscultation bilaterally CARDIAC: Regular rate and rhythm, no murmurs/gallops/rubs ABDOMEN: soft, NTTP, ND, active bowel sounds, no rebound, no rigidity, no guarding EXTREMETIES: no cyanosis, no clubbing, no edema NEUROLOGIC: Alert, oriented to person, place, time, CN's grossly intact, no focal deficits PSYCH: Normal mood and affect Results Laboratory Results: 10/21/16 05:26 10/21/16 15:03 Stool Occult Blood NEGATIVE Impressions: Chest X-Ray 10/17/16 12:32 IMPRESSION: No significant interval change. No acute changes. Obstructive lung disease. Other findings as noted above Chest/Abdomen CTA 10/18/16 00:00 IMPRESSION: Small pulmonary embolus to the right lower lobe pulmonary artery. Venous Doppler Study 10/18/16 00:00 IMPRESSION: NO EVIDENCE DVT OR SVT IN EITHER LEG. Assessment & Plan - Diagnosis (1) Acute pulmonary embolus Qualifiers: Pulmonary embolism type: other Acute cor pulmonale presence: without acute cor pulmonale Qualified Code(s): I26.99 - Other pulmonary embolism without acute cor pulmonale Is this a current diagnosis for this admission?: YesPlan: Continue patient on coumadin and lovenox. Patient will require inpatient status while INR is becoming theraputic. Discharge planning has been consulted. Patient has been educated on coumadin diet. Patient reports history of DVT in the past and has been on coumadin previously. Patient has no outpatient resources including insurance or follow up for this. These are being established. (2) Alcohol dependence Qualifiers: Substance use status: uncomplicated Qualified Code(s): F10.20 - Alcohol dependence, uncomplicated Is this a current diagnosis for this admission?: YesPlan: Continue thiamine and folic acid. Monitor for signs of withdrawal. (3) COPD exacerbation Is this a current diagnosis for this admission?: YesPlan: Improving. Decrease prednisone and change nebulized treatments to prn. Place on combivent (4) Tobacco abuse Is this a current diagnosis for this admission?: YesPlan: Offered nicotine patch and declined. Advised to stop smoking. (5) Pleural nodule Is this a current diagnosis for this admission?: YesPlan: Recommend patient follow up on this in 6 months with a repeat CTA (6) Obesity (BMI 30.0-34.9) Is this a current diagnosis for this admission?: YesPlan: Encourage appropriate weight loss - Time Time Spent with patient: 15-24 minutes Medications reviewed and adjusted accordingly: Yes Anticipated discharge: Home Within: within 48 hours
[2016-10-22] MEDS: WARFARIN SODIUM 5 MG TABLET PO SCH (21:24)
[2016-10-23 07:47] LABS: HEMATOCRIT 37.2 % (37.9-51.0); HEMOGLOBIN 12.6 g/dL (13.5-17.0); HGB HCT DIFFERENCE 0.6; MEAN CORPUSCULAR HEMOGLOBIN 33.1 pg (27.0-33.4); MEAN CORPUSCULAR HGB CONC 33.8 g/dL (32.0-36.0); MEAN CORPUSCULAR VOLUME 98 fl (80-97); RED CELL DISTRIBUTION WIDTH 13.8 % (11.5-14.0); WHITE BLOOD COUNT 7.3 10^3/uL (4.0-10.5)
[2016-10-23 07:49] LABS: PROTHROMBIN TIME 18.4 SEC (11.4-15.4)
[2016-10-23] MEDS: IPRATROPIUM/ALBUTEROL 0.5-2.5 MG/3 ML AMPUL NEB SCH (07:52)
[2016-10-23] MEDS: DOXYCYCLINE HYCLATE 100 MG TABLET PO SCH ×2 (09:25→21:43)
[2016-10-23] MEDS: ENOXAPARIN SODIUM INJ 100 MG/1 ML DISP.SYRIN SUBCUT SCH ×2 (09:26→21:43)
[2016-10-23] MEDS ORDERED: PREDNISONE 20 MG TABLET PO SCH (10:00)
[2016-10-23] MEDS ORDERED: ALBUTEROL SULFATE HFA (90 MCG/PUFF) 8 GM MDI (1 MDI/ER DISP) IH PRN (13:15)
[2016-10-23] MEDS ORDERED: ALBUTEROL SULFATE HFA (90 MCG/PUFF) 200 PUFF/8.5 GM MDI IH PRN (14:00)
[2016-10-23] MEDS: IPRATROPIUM/ALBUTEROL 120 PUFF/4 GM MDI IH SCH ×2 (17:53→23:08)
[2016-10-23] MEDS: WARFARIN SODIUM 5 MG TABLET PO SCH (21:43)
[2016-10-24 04:09] LABS: APPEARANCE,URINE CLEAR; BILIRUBIN,URINE NEGATIVE (NEGATIVE); GLUCOSE, URINE NEGATIVE (NEGATIVE); KETONES,URINE NEGATIVE (NEGATIVE); LEUKOCYTE ESTERASE,URINE NEGATIVE (NEGATIVE); NITRITE,URINE NEGATIVE (NEGATIVE); PROTEIN,URINE NEGATIVE (NEGATIVE); URINE SPECIFIC GRAVITY 1.005; UROBILINOGEN,URINE NEGATIVE mg/dL (<2.0)
[2016-10-24 05:37] LABS: PROTHROMBIN TIME 19.7 SEC (11.4-15.4)
[2016-10-24] MEDS: IPRATROPIUM/ALBUTEROL 120 PUFF/4 GM MDI IH SCH ×4 (06:08→23:51)
[2016-10-24] MEDS: DOXYCYCLINE HYCLATE 100 MG TABLET PO SCH (09:17)
[2016-10-24] MEDS: ENOXAPARIN SODIUM INJ 100 MG/1 ML DISP.SYRIN SUBCUT SCH ×2 (09:17→22:16)
[2016-10-24] MEDS ORDERED: PREDNISONE 20 MG TABLET PO SCH (10:00)
--- NOTE | 2016-10-24 15:26 | PDOC PROGRESS REPORT ---
Subjective Progress Note for:: 10/23/16 Subjective:: Patient has no new complaints. Patient does note some productive cough without purulence. Patient denies chest pain, shortness of breath, abdominal pain, nausea, vomiting , fevers, chills, diarrhea, constipation, headache, new onset weakness. Physical Exam Vital Signs: Temp Pulse Resp BP Pulse Ox 98.1 F 74 18 157/85 H 93 10/23/16 11:35 10/23/16 11:35 10/23/16 11:35 10/23/16 11:35 10/23/16 11:35 Intake & Output 10/22/16 10/23/16 10/24/16 06:59 06:59 06:59 Intake Total 1771 3400 598 Output Total 2 Balance 1771 3398 598 Weight 93.9 kg 91.1 kg Exam: GENERAL: No acute distress, A+Ox3 HEENT: AT/NC, Conjunctiva clear, nonicteric, moist mucous membranes, no JVD, midline trachea RESPIRATORY: Prolonged expiratory phase, Clear to auscultation bilaterally CARDIAC: Regular rate and rhythm, no murmurs/gallops/rubs ABDOMEN: soft, NTTP, ND, active bowel sounds, no rebound, no rigidity, no guarding EXTREMETIES: no cyanosis, no clubbing, no edema NEUROLOGIC: Alert, oriented to person, place, time, CN's grossly intact, no focal deficits PSYCH: Normal mood and affect Results Laboratory Results: 10/23/16 04:02 10/23/16 04:02 WBC 7.3 RBC 3.80 L Hgb 12.6 L Hct 37.2 L MCV 98 H MCH 33.1 MCHC 33.8 RDW 13.8 Plt Count 178 Impressions: Chest X-Ray 10/17/16 12:32 IMPRESSION: No significant interval change. No acute changes. Obstructive lung disease. Other findings as noted above Chest/Abdomen CTA 10/18/16 00:00 IMPRESSION: Small pulmonary embolus to the right lower lobe pulmonary artery. Venous Doppler Study 10/18/16 00:00 IMPRESSION: NO EVIDENCE DVT OR SVT IN EITHER LEG. Assessment & Plan - Diagnosis (1) Acute pulmonary embolus Qualifiers: Pulmonary embolism type: other Acute cor pulmonale presence: without acute cor pulmonale Qualified Code(s): I26.99 - Other pulmonary embolism without acute cor pulmonale Is this a current diagnosis for this admission?: Yes (2) Alcohol dependence Qualifiers: Substance use status: uncomplicated Qualified Code(s): F10.20 - Alcohol dependence, uncomplicated Is this a current diagnosis for this admission?: Yes (3) COPD exacerbation Is this a current diagnosis for this admission?: Yes (4) Tobacco abuse Is this a current diagnosis for this admission?: Yes (5) Pleural nodule Is this a current diagnosis for this admission?: Yes (6) Obesity (BMI 30.0-34.9) Is this a current diagnosis for this admission?: Yes
--- NOTE | 2016-10-24 15:29 | PDOC PROGRESS REPORT ---
Subjective Progress Note for:: 10/24/16 Subjective:: patient reports some shortness of breath Patient denies chest pain, abdominal pain, nausea, vomiting, fevers, chills, diarrhea, constipation, headache, new onset weakness. Physical Exam Vital Signs: Temp Pulse Resp BP Pulse Ox 98.2 F 73 18 155/78 H 98 10/24/16 12:20 10/24/16 12:20 10/24/16 12:20 10/24/16 12:21 10/24/16 12:20 Intake & Output 10/23/16 10/24/16 10/25/16 06:59 06:59 06:59 Intake Total 3400 1950 Output Total 2 2000 Balance 3398 -50 Weight 91.1 kg 98 kg Exam: GENERAL: No acute distress, A+Ox3 HEENT: AT/NC, Conjunctiva clear, nonicteric, moist mucous membranes, no JVD, midline trachea RESPIRATORY: Poor air excursion, Prolonged expiratory phase, Clear to auscultation bilaterally, CARDIAC: Regular rate and rhythm, no murmurs/gallops/rubs ABDOMEN: soft, NTTP, ND, active bowel sounds, no rebound, no rigidity, no guarding EXTREMETIES: no cyanosis, no clubbing, no edema NEUROLOGIC: Alert, oriented to person, place, time, CN's grossly intact, no focal deficits PSYCH: Normal mood and affect Results Laboratory Results: 10/23/16 04:02 10/24/16 10/24/16 03:15 07:23 Urine Color STRAW Urine Appearance CLEAR Urine pH 6.0 Ur Specific [place] 1.005 Urine Protein NEGATIVE Urine Glucose (UA) NEGATIVE Urine Ketones NEGATIVE Urine Blood NEGATIVE Urine Nitrite NEGATIVE Ur Leukocyte Esterase NEGATIVE Urine WBC (Auto) 1 Stool Occult Blood NEGATIVE Impressions: Chest X-Ray 10/17/16 12:32 IMPRESSION: No significant interval change. No acute changes. Obstructive lung disease. Other findings as noted above Chest/Abdomen CTA 10/18/16 00:00 IMPRESSION: Small pulmonary embolus to the right lower lobe pulmonary artery. Venous Doppler Study 10/18/16 00:00 IMPRESSION: NO EVIDENCE DVT OR SVT IN EITHER LEG. Assessment & Plan - Diagnosis (1) Acute pulmonary embolus Qualifiers: Pulmonary embolism type: other Acute cor pulmonale presence: without acute cor pulmonale Qualified Code(s): I26.99 - Other pulmonary embolism without acute cor pulmonale Is this a current diagnosis for this admission?: Yes Plan: Continue patient on coumadin and lovenox. Patient will require inpatient status while INR is becoming theraputic. Discharge planning has been consulted. Patient has been educated on coumadin diet. Patient reports history of DVT in the past and has been on coumadin previously. Patient has no outpatient resources including insurance or follow up for this. These are being established. (2) Alcohol dependence Qualifiers: Substance use status: uncomplicated Qualified Code(s): F10.20 - Alcohol dependence, uncomplicated Is this a current diagnosis for this admission?: Yes (3) COPD exacerbation Is this a current diagnosis for this admission?: Yes Plan: Improving. Failed decrease of prednisone and change nebulized treatments to prn. Increase prednisone to bid Place on combivent (4) Tobacco abuse Is this a current diagnosis for this admission?: Yes (5) Pleural nodule Is this a current diagnosis for this admission?: Yes (6) Obesity (BMI 30.0-34.9) Is this a current diagnosis for this admission?: Yes - Time Time Spent with patient: 15-24 minutes Medications reviewed and adjusted accordingly: Yes Anticipated discharge: Home Within: within 24 hours, within 48 hours
[2016-10-24] MEDS: PREDNISONE 20 MG TABLET PO SCH (17:19)
[2016-10-24] MEDS: WARFARIN SODIUM 5 MG TABLET PO SCH (22:16)
[2016-10-25 04:55] LABS: HEMATOCRIT 38.6 % (37.9-51.0); HEMOGLOBIN 13.1 g/dL (13.5-17.0); HGB HCT DIFFERENCE 0.7; MEAN CORPUSCULAR HEMOGLOBIN 33.4 pg (27.0-33.4); MEAN CORPUSCULAR VOLUME 99 fl (80-97); RED BLOOD COUNT 3.92 10^6/uL (4.35-5.55)
[2016-10-25 05:03] LABS: PROTHROMBIN TIME 19.5 SEC (11.4-15.4)
[2016-10-25] MEDS: IPRATROPIUM/ALBUTEROL 120 PUFF/4 GM MDI IH SCH ×4 (05:56→23:33)
[2016-10-25] MEDS: ENOXAPARIN SODIUM INJ 100 MG/1 ML DISP.SYRIN SUBCUT SCH ×2 (10:00→22:19)
[2016-10-25] MEDS: PREDNISONE 20 MG TABLET PO SCH ×2 (10:01→17:03)
--- NOTE | 2016-10-25 15:36 | PDOC PROGRESS REPORT ---
Subjective Progress Note for:: 10/25/16 Subjective:: Patient reports some shortness of breath with exertion Patient denies chest pain, abdominal pain, nausea, vomiting, fevers, chills, diarrhea, constipation, headache, new onset weakness. Physical Exam Vital Signs: Temp Pulse Resp BP Pulse Ox 97.5 F 80 20 133/68 H 98 10/25/16 11:00 10/25/16 11:00 10/25/16 11:00 10/25/16 11:00 10/25/16 11:00 Intake & Output 10/24/16 10/25/16 10/26/16 06:59 06:59 06:59 Intake Total 1950 1723 Output Total 1999 2321 Balance -50 -2853 Weight 98 kg 98 kg Exam: GENERAL: No acute distress, A+Ox3 HEENT: AT/NC, Conjunctiva clear, nonicteric, moist mucous membranes, no JVD, midline trachea RESPIRATORY: Prolonged expiratory phase, Clear to auscultation bilaterally, no wheezes, rhonchi, rales CARDIAC: Regular rate and rhythm, no murmurs/gallops/rubs ABDOMEN: soft, NTTP, ND, active bowel sounds, no rebound, no rigidity, no guarding EXTREMETIES: no cyanosis, no clubbing, no edema NEUROLOGIC: Alert, oriented to person, place, time, CN's grossly intact, no focal deficits PSYCH: Normal mood and affect Results Laboratory Results: 10/25/16 04:11 10/25/16 10/25/16 04:11 10:10 WBC 9.0 RBC 3.92 L Hgb 13.1 L Hct 38.6 MCV 99 H MCH 33.4 MCHC 34.0 RDW 14.0 Plt Count 195 Urine Color Cancelled Urine Appearance Cancelled Urine pH Cancelled Ur Specific [place] Cancelled Urine Protein Cancelled Urine Glucose (UA) Cancelled Urine Ketones Cancelled Urine Blood Cancelled Urine Nitrite Cancelled Ur Leukocyte Esterase Cancelled Urine WBC (Auto) Cancelled Urine RBC (Auto) Cancelled Impressions: Chest X-Ray 10/17/16 12:32 IMPRESSION: No significant interval change. No acute changes. Obstructive lung disease. Other findings as noted above Chest/Abdomen CTA 10/18/16 00:00 IMPRESSION: Small pulmonary embolus to the right lower lobe pulmonary artery. Venous Doppler Study 10/18/16 00:00 IMPRESSION: NO EVIDENCE DVT OR SVT IN EITHER LEG. Assessment & Plan - Diagnosis (1) Acute pulmonary embolus Qualifiers: Pulmonary embolism type: other Acute cor pulmonale presence: without acute cor pulmonale Qualified Code(s): I26.99 - Other pulmonary embolism without acute cor pulmonale Is this a current diagnosis for this admission?: Yes Plan: Continue patient on coumadin and lovenox. Patient will require inpatient status while INR is becoming theraputic. Discharge planning has been consulted. Patient has been educated on coumadin diet. Patient reports history of DVT in the past and has been on coumadin previously. Patient has no outpatient resources including insurance or follow up for this. These are being established through home health and he requests Dr. Herrera. (2) Alcohol dependence Qualifiers: Substance use status: uncomplicated Qualified Code(s): F10.20 - Alcohol dependence, uncomplicated Is this a current diagnosis for this admission?: Yes Plan: Continue thiamine and folic acid. Monitor for signs of withdrawal. (3) COPD exacerbation Is this a current diagnosis for this admission?: Yes Plan: Improving. On prednisone 20mg bid and nebulized treatments On combivent and ventolin (4) Tobacco abuse Is this a current diagnosis for this admission?: Yes (5) Pleural nodule Is this a current diagnosis for this admission?: Yes (6) Obesity (BMI 30.0-34.9) Is this a current diagnosis for this admission?: Yes - Time Time Spent with patient: 25-34 minutes Medications reviewed and adjusted accordingly: Yes Anticipated discharge: Home Within: within 48 hours
[2016-10-25 17:38] LABS: APPEARANCE,URINE CLEAR; BILIRUBIN,URINE NEGATIVE (NEGATIVE); GLUCOSE, URINE NEGATIVE (NEGATIVE); KETONES,URINE NEGATIVE (NEGATIVE); LEUKOCYTE ESTERASE,URINE NEGATIVE (NEGATIVE); NITRITE,URINE NEGATIVE (NEGATIVE); PROTEIN,URINE NEGATIVE (NEGATIVE); UROBILINOGEN,URINE NEGATIVE mg/dL (<2.0)
[2016-10-25] MEDS: LISINOPRIL 10 MG TABLET PO SCH (22:18)
[2016-10-25] MEDS: WARFARIN SODIUM 5 MG TABLET PO SCH (22:18)
[2016-10-26] MEDS: IPRATROPIUM/ALBUTEROL 120 PUFF/4 GM MDI IH SCH ×3 (05:28→19:00)
[2016-10-26 08:16] LABS: PROTHROMBIN TIME 22.4 SEC (11.4-15.4)
[2016-10-26] MEDS: PREDNISONE 20 MG TABLET PO SCH ×2 (11:08→18:56)
[2016-10-26] MEDS: LISINOPRIL 10 MG TABLET PO SCH ×2 (11:08→22:06)
[2016-10-26] MEDS: ENOXAPARIN SODIUM INJ 100 MG/1 ML DISP.SYRIN SUBCUT SCH ×2 (11:09→22:06)
--- NOTE | 2016-10-26 12:40 | PDOC PROGRESS REPORT ---
Subjective Progress Note for:: 10/26/16 Subjective:: Patient reports some shortness of breath with exertion, but is overall improved Patient denies chest pain, abdominal pain, nausea, vomiting, fevers, chills, diarrhea, constipation, headache, new onset weakness. Physical Exam Vital Signs: Temp Pulse Resp BP Pulse Ox 97.5 F 63 16 148/81 H 99 10/26/16 07:15 10/26/16 07:15 10/26/16 07:15 10/26/16 07:15 10/26/16 07:15 Intake & Output 10/25/16 10/26/16 10/27/16 06:59 06:59 06:59 Intake Total 1723 1250 Output Total 4576 1669 Balance -5784 -811 Weight 98 kg 98 kg Exam: GENERAL: No acute distress, A+Ox3 HEENT: AT/NC, Conjunctiva clear, nonicteric, moist mucous membranes, no JVD, midline trachea RESPIRATORY: Prolonged expiratory phase, Clear to auscultation bilaterally, no wheezes, rhonchi, rales CARDIAC: Regular rate and rhythm, no murmurs/gallops/rubs ABDOMEN: soft, NTTP, ND, active bowel sounds, no rebound, no rigidity, no guarding EXTREMETIES: no cyanosis, no clubbing, no edema NEUROLOGIC: Alert, oriented to person, place, time, CN's grossly intact, no focal deficits PSYCH: Normal mood and affect Results Laboratory Results: 10/25/16 04:11 10/25/16 17:15 Urine Color YELLOW Urine Appearance CLEAR Urine pH 6.0 Ur Specific [place] 1.010 Urine Protein NEGATIVE Urine Glucose (UA) NEGATIVE Urine Ketones NEGATIVE Urine Blood NEGATIVE Urine Nitrite NEGATIVE Ur Leukocyte Esterase NEGATIVE Urine WBC (Auto) 0 Urine RBC (Auto) 0 Impressions: Chest X-Ray 10/17/16 12:32 IMPRESSION: No significant interval change. No acute changes. Obstructive lung disease. Other findings as noted above Chest/Abdomen CTA 10/18/16 00:00 IMPRESSION: Small pulmonary embolus to the right lower lobe pulmonary artery. Venous Doppler Study 10/18/16 00:00 IMPRESSION: NO EVIDENCE DVT OR SVT IN EITHER LEG. Assessment & Plan - Diagnosis (1) Acute pulmonary embolus Qualifiers: Pulmonary embolism type: other Acute cor pulmonale presence: without acute cor pulmonale Qualified Code(s): I26.99 - Other pulmonary embolism without acute cor pulmonale Is this a current diagnosis for this admission?: Yes Plan: Continue patient on coumadin and lovenox. Patient will require inpatient status while INR is becoming theraputic. Discharge planning has been consulted. Patient has been educated on coumadin diet. Patient reports history of DVT in the past and has been on coumadin previously. Patient has no outpatient resources including insurance or follow up for this. These are being established through home health and he requests Dr. Herrera. INR 1.85 today (2) Alcohol dependence Qualifiers: Substance use status: uncomplicated Qualified Code(s): F10.20 - Alcohol dependence, uncomplicated Is this a current diagnosis for this admission?: Yes Plan: Continue thiamine and folic acid. Monitor for signs of withdrawal. Outside the window for DTs (3) COPD exacerbation Is this a current diagnosis for this admission?: Yes Plan: Improving. On prednisone 20mg bid and nebulized treatments On combivent and ventolin (4) Tobacco abuse Is this a current diagnosis for this admission?: Yes Plan: Offered nicotine patch and declined. Advised to stop smoking. (5) Pleural nodule Is this a current diagnosis for this admission?: Yes Plan: Recommend patient follow up on this in 6 months with a repeat CTA (6) Obesity (BMI 30.0-34.9) Is this a current diagnosis for this admission?: Yes - Time Time Spent with patient: 25-34 minutes Medications reviewed and adjusted accordingly: Yes Anticipated discharge: Home, Home with Homehealth Within: within 24 hours
[2016-10-26] MEDS: WARFARIN SODIUM 5 MG TABLET PO SCH (22:06)
[2016-10-27] MEDS: IPRATROPIUM/ALBUTEROL 120 PUFF/4 GM MDI IH SCH ×2 (03:44→06:02)
[2016-10-27] MEDS: LISINOPRIL 10 MG TABLET PO SCH (09:02)
[2016-10-27] MEDS: PREDNISONE 20 MG TABLET PO SCH (09:02)
[2016-10-27] MEDS: ENOXAPARIN SODIUM INJ 100 MG/1 ML DISP.SYRIN SUBCUT SCH (09:04)
[2016-10-27] MEDS ORDERED: FUROSEMIDE 20 MG TABLET PO ONE (09:12)
[2016-10-27 10:12] VITALS: BP 150/79
--- NOTE | 2016-10-27 16:34 | PDOC DISCHARGE SUMMARY ---
General - Admit/Disc Date/PCP Admission Date/Primary Care Provider: 10/17/16 15:20 Discharge Date: 10/27/16 - Discharge Diagnosis (1) Acute pulmonary embolus Is this a current diagnosis for this admission?: Yes (2) Alcohol dependence Is this a current diagnosis for this admission?: Yes (3) COPD exacerbation Is this a current diagnosis for this admission?: Yes (4) Tobacco abuse Is this a current diagnosis for this admission?: Yes (5) Pleural nodule Is this a current diagnosis for this admission?: Yes (6) Obesity (BMI 30.0-34.9) Is this a current diagnosis for this admission?: Yes - Additional Information Resuscitation Status: Full Code Discharge Diet: Regular, Other (Comments) - coumadin Discharge Activity: Activity As Tolerated Home Medications: Albuterol Sulfate [Proair HFA Inhalation Aerosol 8.5 gm MDI] 2 puff IH Q6HP PRN #1 hfa.aer.ad 10/26/16 Ipratropium/Albuterol Sulfate [Combivent Respimat 4 gm Mdi] 1 puff IH Q6 #1 aer.w.adap 10/26/16 Lisinopril [Prinivil 10 mg Tablet] 10 mg PO Q12 #60 tablet 10/26/16 Prednisone [Deltasone 20 mg Tablet] 20 mg PO BID #10 tablet 10/26/16 Warfarin Sodium [Coumadin 5 mg Tablet] 15 mg PO QHS #90 tablet 10/26/16 Azithromycin 500 mg PO DAILY #5 tablet 10/27/16 Lisinopril [Prinivil 10 mg Tablet] 10 mg PO Q12 #60 tablet 10/27/16 History of Present Illness History of Present Illness: SYD SADLER is a 71 year old male with known COPD presents from home with sudden worsening of his SOA that has been building for a day or two and feels like if he just had rescue inhalers at home he could avoid coming to the hospital. he has not found a PCP due to financial issues and therefore cannot keep refills for his meds. He reports sudden worsening of wheezing, increased work of breathing, chest tightness, exercise intolerance, nonproductive cough. he denies chest pain, palpitations, fevers/chills, purulent phlegm, n/v/d, sick contacts, recent travel, sedentary lifestyle, claudication or calf pain. eval in ED found him tripoding with significantly increased WOB that seems to have responded to BiPAP, systemic steroids, IV mag and multiple nebs. he has not returned to baseline and so we were asked to admit for further eval and amaangegment. Hospital Course Hospital Course: He weaned off the BiPAP pretty quickly and remains on RA with good sats. His d- dimer was elevated and stat CTA chest shows a small PE likely accounting for his rapid decline. He has hx of spontaneous DVT in Right calf and took coumadin for 2 years before told to stop, no etiology for the clot ever told to him. Dopplers here were negative for DVT. Due to his chronic alcohol abuse, patient was started on heparin and coumadin, which he was comfortable with. INR trended up and on day of DC was 2.3. Patient was advised to stop drinking alcohol and stop using tobacco. Discount cards and home health were set up through dc planning. Discharged in stable condition Physical Exam Vital Signs: Temp Pulse Resp BP Pulse Ox 97.6 F 59 L 16 150/79 H 98 10/27/16 07:32 10/27/16 07:32 10/27/16 07:32 10/27/16 07:32 10/27/16 07:32 Intake & Output 10/26/16 10/27/16 10/28/16 06:59 06:59 06:59 Intake Total 1250 1185 Output Total 1975 1615 Balance -725 -430 Weight 98 kg 102.3 kg Exam: GENERAL: No acute distress, A+Ox3 HEENT: AT/NC, Conjunctiva clear, nonicteric, moist mucous membranes, no JVD, midline trachea RESPIRATORY: Prolonged expiratory phase, Clear to auscultation bilaterally, no wheezes, rhonchi, rales CARDIAC: Regular rate and rhythm, no murmurs/gallops/rubs ABDOMEN: soft, NTTP, ND, active bowel sounds, no rebound, no rigidity, no guarding EXTREMETIES: no cyanosis, no clubbing, no edema NEUROLOGIC: Alert, oriented to person, place, time, CN's grossly intact, no focal deficits PSYCH: Normal mood and affect Results Laboratory Results: 10/25/16 04:11 Impressions: Chest X-Ray 10/17/16 12:32 IMPRESSION: No significant interval change. No acute changes. Obstructive lung disease. Other findings as noted above Chest/Abdomen CTA 10/18/16 00:00 IMPRESSION: Small pulmonary embolus to the right lower lobe pulmonary artery. Venous Doppler Study 10/18/16 00:00 IMPRESSION: NO EVIDENCE DVT OR SVT IN EITHER LEG. Qualifiers PATEINT BEING DISCHARGED WITH ANY OF THE FOLLOWING DIAGNOSIS?: VTE (PE or DVT) VTE patient discharged on overlapping Therapy?: No Reason(s) for not prescribing Overlap Therapy:: Not indicated - INR theraputic on DC
== END 2016-10-27 11:00 | disposition home or self-care (01) | DRG 176 ==
LOC: ER 12:24 → EH 15:20 → UNDOADMIN 15:28 → EH 15:28 → 3W 18:49 → 3N 10-20 15:59 → 4N 10-23 23:20
PROVIDERS: ADMIT Internal Medicine; ATTEND Internal Medicine
PROC: 5A09357 Assistance with Respiratory Ventilation, Less than 24 Consecutive Hours, Continuous Positive Airway Pressure (ICD-10-PCS; principal; 2016-10-17)
DX: I26.99 Other pulmonary embolism without acute cor pulmonale (principal); J44.1 Chronic obstructive pulmonary disease with (acute) exacerbation; L02.413 Cutaneous abscess of right upper limb; F10.20 Alcohol dependence, uncomplicated; R91.1 Solitary pulmonary nodule; I10 Essential (primary) hypertension; M19.90 Unspecified osteoarthritis, unspecified site; F32.9 Major depressive disorder, single episode, unspecified; E66.9 Obesity, unspecified; Z68.31 Body mass index [BMI] 31.0-31.9, adult; Z79.01 Long term (current) use of anticoagulants; Z79.899 Other long term (current) drug therapy; Z86.718 Personal history of other venous thrombosis and embolism; F17.210 Nicotine dependence, cigarettes, uncomplicated
CPT/HCPCS: 36415; 71010; 71275; 80053; 81001; 82272; 82550; 82553; 82803; 83605; 84484; 85025; 85027; 85379; 85610; 87040; 87086; 93005; 93010; 93970; 94640; 94660; 96365; 96366; 96375; 99291; J1650; J2920; J2930; J3475; J3490; J7512; J7620

== ENCOUNTER 2017-04-25 16:29 | Emergency (ER) | payer MEDICARE ==
[2017-04-25 18:23] LABS: ABSOLUTE BASOPHILS # (AUTO) 0.1 10^3/uL (0.0-0.2); ABSOLUTE EOSINOPHILS # (AUTO) 0.5 10^3/uL (0.0-0.6); ABSOLUTE LYMPHOCYTES (AUTO) 1.1 10^3/uL (0.5-4.7); ABSOLUTE MONOCYTES (AUTO) 0.7 10^3/uL (0.1-1.4); ABSOLUTE NEUT (AUTO) 4.1 10^3/uL (1.7-8.2); BASOPHILS % (AUTO) 1.3 % (0-2); EOSINOPHILS % (AUTO) 7.3 % (0-6); HEMATOCRIT 36.1 % (37.9-51.0); HEMOGLOBIN 12.3 g/dL (13.5-17.0); LYMPHOCYTES % (AUTO) 17.7 % (13-45); MEAN CORPUSCULAR HEMOGLOBIN 31.7 pg (27.0-33.4); MEAN CORPUSCULAR HGB CONC 34.2 g/dL (32.0-36.0); MEAN CORPUSCULAR VOLUME 93 fl (80-97); MONOCYTES % (AUTO) 10.2 % (3-13); PLATELET COUNT 273 10^3/uL (150-450); RED BLOOD COUNT 3.89 10^6/uL (4.35-5.55); RED CELL DISTRIBUTION WIDTH 13.6 % (11.5-14.0); SEGMENTED NEUTROPHILS % (AUTO) 63.5 % (42-78); TOTAL CELLS COUNTED % (AUTO) 100 %; WHITE BLOOD COUNT 6.4 10^3/uL (4.0-10.5)
[2017-04-25 18:30] LABS: APPEARANCE,URINE CLEAR; BILIRUBIN,URINE NEGATIVE (NEGATIVE); COLOR,URINE STRAW; GLUCOSE, URINE NEGATIVE (NEGATIVE); KETONES,URINE NEGATIVE (NEGATIVE); LEUKOCYTE ESTERASE,URINE NEGATIVE (NEGATIVE); NITRITE,URINE NEGATIVE (NEGATIVE); PROTEIN,URINE NEGATIVE (NEGATIVE); URINE SPECIFIC GRAVITY 1.006; UROBILINOGEN,URINE NEGATIVE mg/dL (<2.0)
[2017-04-25 18:35] LABS: ALANINE AMINOTRANSFERASE 25 U/L (21-72); ALBUMIN 3.9 g/dL (3.5-5.0); ALKALINE PHOSPHATASE 63 U/L (38-126); ANION GAP 11 (5-19); ASPARTATE AMINO TRANSFERASE 29 U/L (17-59); BILIRUBIN,DIRECT 0.4 mg/dL (0.0-0.4); BILIRUBIN,TOTAL 0.5 mg/dL (0.2-1.3); BLOOD UREA NITROGEN 17 mg/dL (7-20); CALCIUM 9.6 mg/dL (8.4-10.2); CARBON DIOXIDE 24 mmol/L (22-30); CHLORIDE 93 mmol/L (98-107); GLUCOSE 82 mg/dL (75-110); POTASSIUM 4.6 mmol/L (3.6-5.0); SODIUM 127.5 mmol/L (137-145); TOTAL PROTEIN 6.7 g/dL (6.3-8.2)
--- NOTE | 2017-04-25 18:38 | RADIOLOGY REPORT (SQ) ---
EXAM DESCRIPTION: CHEST SINGLE VIEW COMPLETED DATE/TIME: 04/25/2017 6:29 pm REASON FOR STUDY: JOSE RAMON, SOB COMPARISON: 10/17/2016 NUMBER OF VIEWS: One view. TECHNIQUE: Single frontal radiographic view of the chest acquired. LIMITATIONS: None. FINDINGS: LUNGS AND PLEURA: Stable subsegmental atelectasis/scarring left lung base. No new opaciti es, masses or pneumothorax. No pleural effusion. Attenuated blood vessels and flattened deborah-diaphrag ms. MEDIASTINUM AND HILAR STRUCTURES: No masses. Contour normal. HEART AND VASCULAR STRUCTURES: Heart stable in size. Normal vasculature. BONES: No acute findings. Old healed left-sided rib fractures. HARDWARE: None in the chest. OTHER: No other significant finding. IMPRESSION: COPD. NO ACUTE RADIOGRAPHIC FINDING IN THE CHEST OR SIGNIFICANT CHANGE FROM PRIOR STUDY . TECHNICAL DOCUMENTATION: JOB ID: [id number] [employer]- All Rights Reserved
[2017-04-25] MEDS ORDERED: IPRATROPIUM/ALBUTEROL 0.5-2.5 MG/3 ML AMPUL NEB ONE (20:21)
[2017-04-25] MEDS ORDERED: ALBUTEROL SULFATE 0.083% NEB 2.5 MG/3 ML AMPUL NEB ONE (20:22)
[2017-04-25] MEDS ORDERED: PREDNISONE 20 MG TABLET PO ONE (20:22)
--- NOTE | 2017-04-25 20:30 | ER Document Report ---
ED General - General Chief Complaint: Shortness Of Breath Stated Complaint: SHORTNESS OF BREATH Notes: Patient is a 71-year-old male with a past medical history of COPD, continues to smoke, chronic alcoholism, hypertension, hyperlipidemia, who presents with 2-3 days of progressively worsening shortness of breath. He reports that his shortness of breath is constant, worsened by exertion. He has been using an albuterol inhaler with moderate improvement of symptoms. Nothing worsens his symptoms are than exertion. He reports this feels very similar to prior COPD exacerbations. He does have a history of a pulmonary embolus and is currently anticoagulated with Coumadin. He has not seen his primary care doctor regarding today's concerns. He denies any fever, vomiting, chest pain or syncope. TRAVEL OUTSIDE OF THE [place] IN LAST 30 DAYS: No - Related Data Allergies/Adverse Reactions: No Known Allergies Allergy (Verified 11/30/12 09:32) Past Medical History - General Information source: Patient - Social History Smoking Status: Current Some Day Smoker Chew tobacco use (# tins/day): No Frequency of alcohol use: Heavy Drug Abuse: None Family History: COPD Patient has suicidal ideation: No Patient has homicidal ideation: No - Past Medical History Cardiac Medical History: Reports: Hx Hypertension, Hx Pulmonary Embolism Pulmonary Medical History: Reports: Hx COPD, Hx Pneumonia Renal/ Medical History: Denies: Hx Peritoneal Dialysis Musculoskeltal Medical History: Reports Hx Arthritis Psychiatric Medical History: Denies: Hx Depression Past Surgical History: Reports: Hx Abdominal Surgery - umbilical hernia, Hx Orthopedic Surgery - bilateral knees - Immunizations Hx Diphtheria, Pertussis, Tetanus Vaccination: No - unknown date Hx Pneumococcal Vaccination: 12/09/11 Review of Systems - Review of Systems Notes: Constitutional: Negative for fever. HENT: Negative for sore throat. Eyes: Negative for visual changes. Cardiovascular: Negative for chest pain. Respiratory: Positive for shortness of breath. Gastrointestinal: Negative for abdominal pain, vomiting or diarrhea. Genitourinary: Negative for dysuria. Musculoskeletal: Negative for back pain. Skin: Negative for rash. Neurological: Negative for headaches, weakness or numbness. 10 point ROS negative except as marked above and in HPI. Physical Exam - Vital signs Vitals: Resp Pulse Ox 18 93 04/25/17 17:10 04/25/17 17:10 Interpretation: Normal Notes: PHYSICAL EXAMINATION: GENERAL: Well-appearing, well-nourished and in no acute distress. HEAD: Atraumatic, normocephalic. EYES: Pupils equal round and reactive to light, extraocular movements intact, sclera anicteric, conjunctiva are normal. ENT: nares patent, oropharynx clear without exudates. Moist mucous membranes. NECK: Normal range of motion, supple without lymphadenopathy LUNGS: Mildly diminished breath sounds throughout, and expiratory wheezing in all lung colin HEART: Regular rate and rhythm without murmurs ABDOMEN: Soft, nontender, normoactive bowel sounds. No guarding, no rebound. No masses appreciated. EXTREMITIES: Normal range of motion, no pitting or edema. No cyanosis. NEUROLOGICAL: No focal neurological deficits. Moves all extremities spontaneously and on command. PSYCH: Normal mood, normal affect. SKIN: Warm, Dry, normal turgor, no rashes or lesions noted. Course - Re-evaluation Re-evalutation: 04/25/17 20:23 Patient presents with a mild exacerbation of their baseline COPD. Mild wheezing at time of presentation but vitals do not show significant hypoxemia or tachypnea. No retractions. Patient did clinically improve after receiving nebulizers here in the emergency department. Chest x-ray without evidence of an acute pneumonia. Laboratories do not show acute kidney injury or significant leukocytosis. Patient able to ambulate without any respiratory distress. Based on patient's overall reassuring assessment, I believe they are stable for outpatient management with steroids and oral antibiotics. Patient has nebulizers at home. I do not suspect an acute alternative pathology at this time based on history and exam including acute pulmonary embolus, ACS, pneumothorax, or aortic dissection. Patient does have a history of PE but is currently appropriately anticoagulated, denies pleuritic pain, denies any pain actually whatsoever, and is not tachycardic nor tachypneic. Although at time of discharge patient is moderately tachycardic, this is secondary to receiving 5 albuterol nebulizers during the course of his treatment as he was not tachycardic prior to receiving his neb treatments. At this time will discharge with return precautions and follow-up recommendations. Verbal discharge instructions given a the bedside and opportunity for questions given. Medication warnings reviewed. Patient is in agreement with this plan and has verbalized understanding of return precautions and the need for primary care follow-up in the next 24-72 hours. - Vital Signs Vital signs: Temp Pulse Resp BP Pulse Ox 110 H 19 112/83 94 04/25/17 23:45 04/25/17 23:45 04/25/17 23:01 04/25/17 23:45 - Laboratory Result Diagrams: 04/25/17 17:11 04/25/17 17:11 Laboratory results interpreted by me: 04/25/17 04/25/17 04/25/17 17:11 17:11 17:11 RBC 3.89 L Hgb 12.3 L Hct 36.1 L Eosinophils % 7.3 H PT 21.8 H Sodium 127.5 L Chloride 93 L Urine Blood 04/25/17 18:05 RBC Hgb Hct Eosinophils % PT Sodium Chloride Urine Blood SMALL H - Diagnostic Test Radiology reviewed: Image reviewed, Reports reviewed Radiology results interpreted by me: 04/25/17 20:26 Chest x-ray: Hyperinflated consistent with emphysema but no acute infiltrate - EKG Interpretation by Me Additional EKG results interpreted by me: 04/26/17 04:40 Sinus rhythm. Rate 83. No ST elevations or depressions. QTC is 437. Discharge - Discharge Clinical Impression: COPD exacerbation, Hyponatremia Condition: Good Disposition: HOME, SELF-CARE Additional Instructions: You were seen for a COPD exacerbation. Your symptoms improved with treatment here in the emergency department. However, it is very important that you return to the emergency department immediately if you began to have worsening difficulty breathing that does not respond to your normal home nebulizers. You are also being sent home on a five-day course of steroids that you should start taking tomorrow. Please also take the antibiotics as prescribed. Please also follow closely with your primary care physician. You should eturn to emergency department if you develop fever greater than 101, persistent cough, persistent vomiting, pass out, or any other symptoms that are concerning to you. Prescriptions: Prednisone [Deltasone 20 mg Tablet] 3 tab PO DAILY 5 Days tablet Referrals: SULEMA RICH MD [Primary Care Provider] - Follow up in 3-5 days
[2017-04-25 21:23] LABS: INTERNATIONAL RATION (INR) 1.79; PROTHROMBIN TIME 21.8 SEC (11.4-15.4)
[2017-04-25 23:45] VITALS: BP 112/83
--- NOTE | 2017-04-26 09:55 | EKG REPORT ---
SEVERITY:- ABNORMAL ECG - SINUS RHYTHM RIGHT ATRIAL ABNORMALITY NONSPECIFIC INTRAVENTRICULAR CONDUCTION DELAY ANTERIOR INFARCT, POSSIBLY ACUTE : Confirmed by: Elba Hinds 26-Apr-2017 09:55:15
== END 2017-04-25 23:40 | disposition home or self-care (01) ==
LOC: ER 16:29
DX: J44.1 Chronic obstructive pulmonary disease with (acute) exacerbation (principal); E87.1 Hypo-osmolality and hyponatremia; R06.02 Shortness of breath; I10 Essential (primary) hypertension; E78.5 Hyperlipidemia, unspecified; F10.20 Alcohol dependence, uncomplicated; F17.200 Nicotine dependence, unspecified, uncomplicated
CPT/HCPCS: 93005; 94640 ×2; 99285; 36415; 85025; 85610; 80053; 81001; 71045; 93010; A9270 ×3; J7512; J7620

== ENCOUNTER 2017-07-05 13:32 | Inpatient (IN) | payer MEDICARE ==
--- NOTE | 2017-07-05 14:23 | ER Document Report ---
ED Medical Screen (RME) - General Chief Complaint: Abscess Stated Complaint: POSSIBLE ABSCESS Time Seen by Provider: 07/05/17 14:19 Notes: Patient is complaining of 3 areas of swelling and apparent infection that have been present for about 5 days. He has one lesion just below the left elbow on the underside of the forearm surrounded by a large area of swollen, erythematous , and tender cellulitis with a central lesion. The second lesion is on the back of the left thigh and the third lesion is at the upper "crack" of his butt The lesions have begun to drain fluid. He is not aware of fevers. Has never had this before. Patient has a history of DVTs as well as pulmonary embolus and is currently on warfarin. TRAVEL OUTSIDE OF THE [place] IN LAST 30 DAYS: No - Related Data Allergies/Adverse Reactions: No Known Allergies Allergy (Verified 07/05/17 13:33) Past Medical History - Social History Chew tobacco use (# tins/day): No Frequency of alcohol use: Social Drug Abuse: None - Past Medical History Cardiac Medical History: Reports: Hx Hypertension, Hx Pulmonary Embolism Pulmonary Medical History: Reports: Hx COPD, Hx Pneumonia Renal/ Medical History: Denies: Hx Peritoneal Dialysis Musculoskeltal Medical History: Reports Hx Arthritis Psychiatric Medical History: Denies: Hx Depression Past Surgical History: Reports: Hx Abdominal Surgery - umbilical hernia, Hx Orthopedic Surgery - bilateral knees - Immunizations Hx Diphtheria, Pertussis, Tetanus Vaccination: No - unknown date Physical Exam - Vital signs Vitals: Temp Pulse Resp BP Pulse Ox 98.3 F 79 16 143/80 H 93 07/05/17 13:59 07/05/17 13:59 07/05/17 13:59 07/05/17 13:59 07/05/17 13:59 Course - Vital Signs Vital signs: Temp Pulse Resp BP Pulse Ox 98.3 F 79 16 143/80 H 93 07/05/17 13:59 07/05/17 13:59 07/05/17 13:59 07/05/17 13:59 07/05/17 13:59 Doctor's Discharge - Discharge Referrals: SULEMA RICH MD [Primary Care Provider] - Follow up as needed
[2017-07-05 14:49] LABS: ABSOLUTE BASOPHILS # (AUTO) 0.1 10^3/uL (0.0-0.2); ABSOLUTE EOSINOPHILS # (AUTO) 0.2 10^3/uL (0.0-0.6); ABSOLUTE LYMPHOCYTES (AUTO) 1.3 10^3/uL (0.5-4.7); ABSOLUTE MONOCYTES (AUTO) 1.1 10^3/uL (0.1-1.4); ABSOLUTE NEUT (AUTO) 6.5 10^3/uL (1.7-8.2); BASOPHILS % (AUTO) 0.8 % (0-2); EOSINOPHILS % (AUTO) 2.2 % (0-6); HEMATOCRIT 37.8 % (37.9-51.0); LYMPHOCYTES % (AUTO) 14.2 % (13-45); MEAN CORPUSCULAR HEMOGLOBIN 32.8 pg (27.0-33.4); MEAN CORPUSCULAR HGB CONC 34.4 g/dL (32.0-36.0); MEAN CORPUSCULAR VOLUME 95 fl (80-97); MONOCYTES % (AUTO) 12.1 % (3-13); PLATELET COUNT 290 10^3/uL (150-450); RED BLOOD COUNT 3.96 10^6/uL (4.35-5.55); RED CELL DISTRIBUTION WIDTH 14.4 % (11.5-14.0); SEGMENTED NEUTROPHILS % (AUTO) 70.7 % (42-78); TOTAL CELLS COUNTED % (AUTO) 100 %; WHITE BLOOD COUNT 9.3 10^3/uL (4.0-10.5)
[2017-07-05 14:55] LABS: INTERNATIONAL RATION (INR) 2.45; PROTHROMBIN TIME 27.7 SEC (11.4-15.4)
[2017-07-05 16:45] LABS: ALANINE AMINOTRANSFERASE 22 U/L (21-72); ALBUMIN 3.8 g/dL (3.5-5.0); ALKALINE PHOSPHATASE 83 U/L (38-126); ANION GAP 8 (5-19); ASPARTATE AMINO TRANSFERASE 25 U/L (17-59); BILIRUBIN,DIRECT 0.3 mg/dL (0.0-0.4); BILIRUBIN,TOTAL 0.4 mg/dL (0.2-1.3); BLOOD UREA NITROGEN 8 mg/dL (7-20); CALCIUM 9.2 mg/dL (8.4-10.2); CARBON DIOXIDE 35 mmol/L (22-30); CHLORIDE 97 mmol/L (98-107); GLUCOSE 85 mg/dL (75-110); POTASSIUM 4.5 mmol/L (3.6-5.0); SODIUM 139.5 mmol/L (137-145); TOTAL PROTEIN 7.1 g/dL (6.3-8.2)
[2017-07-05] MEDS ORDERED: LIDOCAINE 1%/EPINEPHRINE INJ 20 ML VIAL INJ ONE (17:06)
--- NOTE | 2017-07-05 17:17 | ER Document Report ---
ED Skin Rash/Insect Bite/Abscs - General Chief Complaint: Abscess Stated Complaint: POSSIBLE ABSCESS Time Seen by Provider: 07/05/17 14:19 Notes: Patient is a 71-year-old male with past medical history as recorded with an abscess in the past 1 and abscesses when he was a child. He denies a history of diabetes. Patient states over the last 3-4 days he has developed 3 separate "abscesses". He states 1 to his left forearm, one to his left hamstring, and 1 to his buttocks. Patient denies any fevers, vomiting, or diarrhea. TRAVEL OUTSIDE OF THE [place] IN LAST 30 DAYS: No - HPI Patient complains to provider of: Skin rash/lesion Onset: Other - See above Quality of pain: Achy Severity: Moderate Pain Level: Denies Skin Character: Abscess Skin Temperature: Warm Quality of rash: Painful Identify cause: No Similar symptoms previously: Yes Recently seen / treated by doctor: No - Related Data Allergies/Adverse Reactions: No Known Allergies Allergy (Verified 07/05/17 13:33) Past Medical History - General Information source: Patient - Social History Smoking Status: Current Every Day Smoker Cigarette use (# per day): No Chew tobacco use (# tins/day): No Smoking Education Provided: No Frequency of alcohol use: Social Drug Abuse: None Family History: COPD Patient has suicidal ideation: No Patient has homicidal ideation: No - Past Medical History Cardiac Medical History: Reports: Hx Hypertension, Hx Pulmonary Embolism Pulmonary Medical History: Reports: Hx COPD, Hx Pneumonia Renal/ Medical History: Denies: Hx Peritoneal Dialysis Musculoskeltal Medical History: Reports Hx Arthritis Psychiatric Medical History: Denies: Hx Depression Past Surgical History: Reports: Hx Abdominal Surgery - umbilical hernia, Hx Orthopedic Surgery - bilateral knees - Immunizations Hx Diphtheria, Pertussis, Tetanus Vaccination: No - unknown date Hx Pneumococcal Vaccination: 12/09/11 Review of Systems - Review of Systems Constitutional: denies: Fever EENT: denies: Eye discharge, Nose discharge Cardiovascular: denies: Chest pain Respiratory: denies: Cough Gastrointestinal: denies: Vomiting Musculoskeletal: denies: Leg swelling Neurological/Psychological: Other - no slurred speech -: Yes All other systems reviewed and negative Physical Exam - Vital signs Vitals: Temp Pulse Resp BP Pulse Ox 98.3 F 79 16 143/80 H 93 07/05/17 13:59 07/05/17 13:59 07/05/17 13:59 07/05/17 13:59 07/05/17 13:59 Notes: Reviewed vital signs and nursing note as charted by RN. CONSTITUTIONAL: Alert and oriented and responds appropriately to questions. Well -appearing; well-nourished HEAD: Normocephalic; atraumatic CARD: Regular rate and rhythm; no murmurs RESP: Normal chest excursion without splinting or tachypnea; breath sounds clear and equal bilaterally with some bilateral end expiratory wheezing ABD/GI: Normal bowel sounds; non-distended; soft, non-tender BACK: The back appears normal and is non-tender to palpation, there is no CVA tenderness EXT: She has a red swollen fluctuant area to the left dorsal proximal forearm with some edema and surrounding erythema. Full nontender range of motion of the left elbow. Patient has a similar lesion to the mid posterior aspect of the left thigh and the right upper lateral buttock cheek. There are no perirectal lesions present SKIN: Above NEURO: Moves all extremities equally; Motor and sensory function intact PSYCH: The patient's mood and manner are appropriate. Grooming and personal hygiene are appropriate. Course - Re-evaluation Re-evalutation: Given the history and physical examination, we have ordered basic labs, blood cultures, and a PT/INR. I do believe that the patient is suffering from multiple independent abscesses. Patient has no signs of sepsis. Given the patient's INR I have called and consulted the general surgeon who came down to see the patient. He would like the patient admitted to the primary care physician with IV antibiotics holding on the Coumadin. I have called the primary care physician Dr. Rich who is in agreement with this plan. 07/05/17 17:20 White blood cell count and glucose as recorded. INR is 2.45. - Vital Signs Vital signs: Temp Pulse Resp BP Pulse Ox 98.3 F 79 16 143/80 H 93 07/05/17 13:59 07/05/17 13:59 07/05/17 13:59 07/05/17 13:59 07/05/17 13:59 - Laboratory Result Diagrams: 07/05/17 14:30 07/05/17 16:06 Laboratory results interpreted by me: 07/05/17 07/05/17 07/05/17 14:30 14:30 16:06 RBC 3.96 L Hgb 13.0 L Hct 37.8 L RDW 14.4 H PT 27.7 H Chloride 97 L Carbon Dioxide 35 H Discharge - Discharge Clinical Impression: Abscess of multiple sites Condition: Fair Disposition: ADMITTED INPATIENT Admitting Provider: Javier Unit Admitted: Medical Floor Referrals: SULEMA RICH MD [Primary Care Provider] - Follow up as needed
[2017-07-05] MEDS ORDERED: VANCOMYCIN HCL INJ 1000 MG VIAL IV ONE (17:21)
[2017-07-05] MEDS ORDERED: PIPERACILLIN/TAZOBACTAM 3.375 GM VIAL IV ONE ×2 (17:22→21:30)
[2017-07-05] MEDS ORDERED: PHYTONADIONE 5 MG TABLET PO ONE (20:12)
[2017-07-05] MEDS ORDERED: VANCOMYCIN HCL 0 MG in DEXTROSE 5%-WATER 250 ML IV NR (20:15)
[2017-07-05] MEDS ORDERED: GLUCAGON,HUMAN RECOMB 1 MG INJ SUBCUT PRN (20:28)
[2017-07-05] MEDS ORDERED: DEXTROSE 40% GEL 15 GM TUBE PO PRN ×2 (20:28)
[2017-07-05] MEDS ORDERED: DEXTROSE 50%-WATER 25 GM/50 ML DISP.SYRIN IV PRN ×2 (20:28)
[2017-07-05] MEDS ORDERED: PIPERACILLIN/TAZOBACTAM 3.375 GM VIAL IV PRN (20:50)
[2017-07-06] MEDS: PIPERACILLIN SODIUM/TAZOBACTAM 3.375 GM in NORMAL SALINE 100 ML IV SCH ×5 (00:43→23:54)
--- NOTE | 2017-07-06 06:46 | PDOC H&P ---
History of Present Illness Admission Date/PCP: 07/05/17 17:31 SULEMA RICH MD Patient complains of: 4d 3 abcesses History of Present Illness: SYD SADLER is a 71 year old male with painful swellings L forearm hip R buttock. 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 Neurological Medical History: Reports: None Endocrine Medical History: Reports: None Renal/ Medical History: Reports: Other - hesitancy Malignancy Medical History: Reports: None GI Medical History: Reports: None Musculoskeltal Medical History: Reports: Arthritis Skin Medical History: Reports: Other - abcesses as child Psychiatric Medical History: Reports: None Traumatic Medical History: Reports: None Hematology: Reports: None Past Surgical History Past Surgical History: Reports: Herniorrhaphy, Orthopedic Surgery - bilateral knee scope, Other - L corneal transplant Social History Information Source: Dr. Arciniega Smoking Status: Current Every Day Smoker Number of Years Smokin Last Time Smoked: 07/05/2017 Frequency of Alcohol Use: Heavy Hx Recreational Drug Use: No Drugs: None Hx Prescription Drug Abuse: No - Advance Directive Resuscitation Status: Full Code Family History Family History: COPD, Malignancy Parental Family History Reviewed: Yes Children Family History Reviewed: Yes Sibling(s) Family History Reviewed.: Yes Medication/Allergy Home Medications: Albuterol Sulfate [Proair HFA Inhalation Aerosol 8.5 gm MDI] 2 puff IH Q6HP PRN #1 hfa.aer.ad 10/26/16 Ipratropium/Albuterol Sulfate [Combivent Respimat 4 gm Mdi] 1 puff IH Q6 #1 aer.w.adap 10/26/16 Furosemide [Lasix] 20 mg PO DAILY 07/06/17 Warfarin Sodium [Coumadin] 10 mg PO ASDIR 07/06/17 Warfarin Sodium [Coumadin] 12.5 mg PO ASDIR PRN 07/06/17 Allergies/Adverse Reactions: No Known Allergies Allergy (Verified 07/05/17 13:33) Review of Systems Constitutional: ABSENT: fever(s), headache(s), weight loss Cardiovascular: PRESENT: dyspnea on exertion, edema, orthropnea. ABSENT: chest pain Respiratory: PRESENT: cough Gastrointestinal: ABSENT: abdominal pain, constipation, diarrhea, hematochezia, vomiting Genitourinary: ABSENT: dysuria, hematuria Integumentary: PRESENT: wounds - 3 abcesses drained some Physical Exam Vital Signs: Temp Pulse Resp BP Pulse Ox 98.8 F 86 17 145/77 H 93 07/06/17 00:07 07/06/17 00:07 07/06/17 00:07 07/06/17 00:07 07/06/17 00:07 General appearance: PRESENT: no acute distress Mouth exam: PRESENT: neck supple Neck exam: ABSENT: lymphadenopathy, tenderness, thyromegaly, tracheal deviation Respiratory exam: PRESENT: wheezes - mild Cardiovascular exam: ABSENT: diastolic murmur, irregular rhythm, systolic murmur GI/Abdominal exam: ABSENT: mass, organolmegaly, tenderness Extremities exam: PRESENT: pedal edema - 1+ Neurological exam: PRESENT: oriented to situation Psychiatric exam: PRESENT: appropriate affect Skin exam: PRESENT: other - red tender induration 6cm: L ulna=draining L posterior thigh R buttock Results Laboratory Results: Abnormal - 24 hr 07/05/17 07/05/17 07/05/17 14:30 14:30 16:06 RBC 3.96 L Hgb 13.0 L Hct 37.8 L RDW 14.4 H PT 27.7 H Chloride 97 L Carbon Dioxide 35 H Assessment & Plan - Diagnosis (1) Cutaneous abscess of buttock Is this a current diagnosis for this admission?: Yes (2) Cutaneous abscess of left upper extremity Is this a current diagnosis for this admission?: Yes (3) Cutaneous abscess of left lower extremity Is this a current diagnosis for this admission?: Yes (4) Panlobular emphysema Is this a current diagnosis for this admission?: Yes Plan: duoneb (5) Cor pulmonale Is this a current diagnosis for this admission?: Yes (6) Other pulmonary embolism without acute cor pulmonale Qualifiers: Chronicity: chronic Qualified Code(s): I27.82 - Chronic pulmonary embolism Is this a current diagnosis for this admission?: Yes Plan: october. Stop warfarin. [place]. Daily inr preOp (7) Essential (primary) hypertension Is this a current diagnosis for this admission?: Yes (8) Enlarged prostate with lower urinary tract symptoms (LUTS) Qualifiers: Lower urinary tract symptom detail: urinary hesitancy Qualified Code(s): N40.1 - Benign prostatic hyperplasia with lower urinary tract symptoms; R39.11 - Hesitancy of micturition; R39.11 - Hesitancy of micturition Is this a current diagnosis for this admission?: Yes - Inpatient Certification Based on my medical assessment, after consideration of the patient's comorbidities, presenting symptoms, or acuity I expect that the services needed warrant INPATIENT care.: Yes I certify that my determination is in accordance with my understanding of Medicare's requirements for reasonable and necessary INPATIENT services [42 CFR 412.3e].: Yes Medical Necessity: Significant Comorbidiites Make Outpatient Treatment Too Risky , Need Close Monitoring Due to Risk of Patient Decompensation, Need for Nebulizer Therapy and Monitoring of Response, Need for IV Antibiotics, Need for Surgery, Risk of Complication if Not Cared For in Hospital, Risk of Diagnosis Which Will Require Inpatient Eval/Care/Monitoring
[2017-07-06 07:11] LABS: INTERNATIONAL RATION (INR) 1.73; PROTHROMBIN TIME 21.1 SEC (11.4-15.4)
[2017-07-06] MEDS ORDERED: NORMAL SALINE 250 ML IV PRN ×2 (07:28)
--- NOTE | 2017-07-06 07:41 | PDOC CONSULTATION ---
History of Present Illness Admission Date/PCP: 07/05/17 17:31 SULEMA RICH MD Patient complains of: Multiple abscesses. History of Present Illness: SYD SADLER is a 71 year old male with a one-week history of several "painful bug bites". These insect bites have become larger more tender, and began to drain purulent material. The abscesses are present on the arms, legs, and trunk. The patient takes Coumadin for history of DVT/PE. Patient denies fevers or chills. Patient also denies chest pain, shortness of breath, or other symptoms. Nothing makes the pain better or worse. Past Medical History Cardiac Medical History: Reports: Hypertension, Pulmonary Embolism Pulmonary Medical History: Reports: Chronic Obstructive Pulmonary Disease (COPD) , Pneumonia Musculoskeltal Medical History: Reports: Arthritis Psychiatric Medical History: Denies: Depression Hematology: Reports: Other - History of DVT and PE Past Surgical History Past Surgical History: Reports: Orthopedic Surgery - bilateral knees Social History Smoking Status: Current Every Day Smoker Frequency of Alcohol Use: Heavy Hx Recreational Drug Use: No Drugs: None Hx Prescription Drug Abuse: No - Advance Directive Resuscitation Status: Full Code Family History Family History: COPD Parental Family History Reviewed: Yes Children Family History Reviewed: Yes Sibling(s) Family History Reviewed.: Yes Medication/Allergy Home Medications: Albuterol Sulfate [Proair HFA Inhalation Aerosol 8.5 gm MDI] 2 puff IH Q6HP PRN #1 hfa.aer.ad 10/26/16 Ipratropium/Albuterol Sulfate [Combivent Respimat 4 gm Mdi] 1 puff IH Q6 #1 aer.w.adap 10/26/16 Furosemide [Lasix] 20 mg PO DAILY 07/06/17 Warfarin Sodium [Coumadin] 10 mg PO ASDIR 07/06/17 Warfarin Sodium [Coumadin] 12.5 mg PO ASDIR PRN 07/06/17 Allergies/Adverse Reactions: No Known Allergies Allergy (Verified 07/05/17 13:33) Review of Systems Constitutional: ABSENT: anorexia, chills, fatigue, fever(s), headache(s) Eyes: ABSENT: visual disturbances Ears: ABSENT: hearing changes Nose, Mouth, and Throat: ABSENT: sore throat Cardiovascular: ABSENT: chest pain, dyspnea on exertion, edema Respiratory: ABSENT: cough, dyspnea, hemoptysis Gastrointestinal: ABSENT: abdominal pain, diarrhea, hematemesis, hematochezia, melena, nausea, vomiting Musculoskeletal: ABSENT: joint swelling, muscle weakness Integumentary: PRESENT: lesions - Abscesses to the arm, leg, and trunk. They are draining and painful. Neurological: ABSENT: abnormal gait, abnormal speech, confusion, focal weakness , memory loss, tingling, tremor(s) Psychiatric: ABSENT: anxiety, depression, hallucinations Hematologic/Lymphatic: ABSENT: easy bleeding, easy bruising, lymphadenopathy Physical Exam Vital Signs: Temp Pulse Resp BP Pulse Ox 98.3 F 100 16 160/75 H 97 07/05/17 13:59 07/05/17 18:52 07/05/17 18:52 07/05/17 18:52 07/05/17 18:52 General appearance: PRESENT: obese. ABSENT: no acute distress Head exam: PRESENT: atraumatic, normocephalic Eye exam: PRESENT: EOMI, PERRLA Mouth exam: PRESENT: moist, neck supple Neck exam: ABSENT: lymphadenopathy, meningismus, tenderness, thyromegaly Respiratory exam: PRESENT: clear to auscultation zehra. ABSENT: chest wall tenderness, rales, retraction, rhonchi, stridor, tachypnea Cardiovascular exam: PRESENT: RRR Pulses: PRESENT: normal radial pulses Vascular exam: PRESENT: normal capillary refill. ABSENT: pallor GI/Abdominal exam: PRESENT: normal bowel sounds, soft. ABSENT: distended, firm , guarding, tenderness Extremities exam: ABSENT: pedal edema Musculoskeletal exam: ABSENT: deformity, dislocation Neurological exam: PRESENT: alert, awake, oriented to person, oriented to place , oriented to time, oriented to situation, CN II-XII grossly intact. ABSENT: motor sensory deficit Psychiatric exam: ABSENT: agitated, anxious, depressed Skin exam: PRESENT: erythema - At abscess site. ABSENT: cyanosis Assessment & Plan - Plan Summary Plan Summary: This is a 71-year-old male with a one-week history of 3 separate abscesses. They are hot, red, swollen, painful, and draining purulent material. They are located on the arm, leg, and adjacent to the buttocks. The patient is on Coumadin for DVT/PE. I have held the patient's Coumadin. Currently, his INR is approximately 2.5. I will recheck his INR tomorrow. If his INR is significantly elevated above 2, he may require FFP and transfer to the operating room. If his INR is not significantly elevated, it may be acceptable to drain his abscesses at the bedside. Repeat INR tomorrow morning. N.p.o. after midnight. Continue antibiotics.
--- NOTE | 2017-07-06 09:21 | PDOC PROGRESS REPORT ---
Subjective Progress Note for:: 07/06/17 Subjective:: This is a 71-year-old male with 3 separate abscesses. It is located on the left arm, one on the left leg, and one on the buttock. The patient is on Coumadin for DVT and PE. His Coumadin was held, in preparation for surgery. The patient reports that his pain is similar in nature and severity to yesterday. He denies any fevers, chills, shortness of breath, chest pain, headache, dizziness, orthostasis, malaise, blurry vision, or other symptoms. The patient has had persistence of purulent drainage. Reason For Visit: 3 ABCESSES Physical Exam Vital Signs: Temp Pulse Resp BP Pulse Ox 98.8 F 86 16 145/77 H 94 07/06/17 00:07 07/06/17 08:54 07/06/17 08:54 07/06/17 00:07 07/06/17 08:54 Intake & Output 07/05/17 07/06/17 07/07/17 06:59 06:59 06:59 Intake Total 893 Output Total 675 Balance 218 Weight 99.9 kg General appearance: PRESENT: no acute distress, cooperative, obese Head exam: PRESENT: atraumatic, normocephalic Eye exam: PRESENT: EOMI, PERRLA. ABSENT: conjunctival injection, scleral icterus Mouth exam: PRESENT: moist, neck supple Neck exam: ABSENT: lymphadenopathy, meningismus, tenderness, thyromegaly, tracheal deviation Respiratory exam: PRESENT: clear to auscultation zehra. ABSENT: accessory muscle use, chest wall tenderness, rales, retraction, rhonchi, stridor Cardiovascular exam: PRESENT: RRR Vascular exam: PRESENT: normal capillary refill. ABSENT: pallor GI/Abdominal exam: PRESENT: normal bowel sounds, soft. ABSENT: distended, firm , guarding, rebound, tenderness Extremities exam: PRESENT: other - 2 cm abscesses to the left upper extremity, left lower extremity, and buttock area. All 3 abscesses are draining purulent material. There is associated erythema and induration present. Neurological exam: PRESENT: alert, awake, oriented to person, oriented to place , oriented to time, CN II-XII grossly intact, normal gait. ABSENT: motor sensory deficit Psychiatric exam: PRESENT: normal mood. ABSENT: anxious, depressed Skin exam: PRESENT: erythema. ABSENT: cyanosis, mottled Results Laboratory Results: 07/06/17 07:43 Blood Type A POSITIVE Assessment & Plan - Plan Summary Plan Summary: This is a 71-year-old male with multiple abscesses. I plan to take him to the operating room today for incision, drainage, and debridement. Risks/benefits discussed, informed consent obtained, and all questions answered.
[2017-07-06] MEDS ORDERED: MUPIROCIN 2% OINTMENT 22 GM TP SCH (10:00)
[2017-07-06] MEDS ORDERED: SUCCINYLCHOLINE CHLORIDE INJ 200 MG/10 ML VIAL ONE (11:03)
[2017-07-06] MEDS ORDERED: FENTANYL CITRATE INJ/PF 100 MCG/2 ML AMPUL ONE ×2 (11:15→13:03)
[2017-07-06] MEDS ORDERED: PROPOFOL INJ 200 MG/20 ML VIAL IV ONE (11:16)
[2017-07-06] MEDS ORDERED: MIDAZOLAM 2 MG/2 ML INJ ONE (11:16)
[2017-07-06] MEDS: MUPIROCIN 2% OINTMENT 22 GM TP SCH ×2 (11:29→17:09)
[2017-07-06] MEDS: BUPIVACAINE HCL 0.25 % INJ/PF (2.5 MG/1 ML) 30 ML VIAL ONE ×2 (11:30→12:06)
[2017-07-06] MEDS ORDERED: FENTANYL CITRATE INJ/PF 100 MCG/2 ML AMPUL IV PRN ×3 (12:23)
[2017-07-06] MEDS ORDERED: PROMETHAZINE HCL INJ 25 MG/1 ML VIAL IV PRN (12:23)
[2017-07-06] MEDS ORDERED: DIPHENHYDRAMINE HCL 50 MG/ML VIAL IV PRN (12:23)
--- NOTE | 2017-07-06 12:29 | Operative Report ---
Nonrecallable Operative Report DATE OF SURGERY: 07/06/17 PREOPERATIVE DIAGNOSIS: 1. Abscess to the left upper extremity. 2. Abscess to the left lower extremity. 3. Abscess to the buttock. POSTOPERATIVE DIAGNOSIS: Same as above OPERATION: 1 incision and drainage of left upper extremity abscess. 2. Incision and drainage of left lower extremity abscess. 3. Incision and drainage of buttock abscess. 4. Sharp, excisional debridement of necrotic skin and fatty soft tissue. SURGEON: RAFFAELE HOOPER ANESTHESIA: GA TISSUE REMOVED OR ALTERED: Wound culture COMPLICATIONS: None apparent ESTIMATED BLOOD LOSS: Minimal PROCEDURE: After informed consent was obtained, the patient was brought in the operating room. He was laid in the right lateral decubitus position. The area of the left upper extremity, left lower extremity, and buttock were prepped and draped in normal sterile fashion. There was necrotic skin and fatty tissue overlying the 3 separate areas of abscess. All necrotic skin and fatty tissue were excised sharply using a 15 blade scalpel. Once all necrotic tissue was removed , and the abscess cavities were cultured. A moderate amount of purulent material was encountered during the procedure. This purulent material was irrigated and cleaned from the patient. Hemostasis was achieved using Bovie electrocautery. Dressings were then fashioned, and the procedure was concluded. All sponge, instrument, and needle counts were correct 2. Condition: Stable.
[2017-07-06] MEDS: IPRATROPIUM/ALBUTEROL 0.5-2.5 MG/3 ML AMPUL NEB PRN (12:44)
[2017-07-06] MEDS ORDERED: VANCOMYCIN HCL 1,500 MG in DEXTROSE 5%-WATER 250 ML IV ONE (13:00)
[2017-07-06] MEDS ORDERED: ALBUTEROL SULFATE 0.083% NEB 2.5 MG/3 ML AMPUL NEB ONE (13:02)
[2017-07-06] MEDS ORDERED: DIPHENHYDRAMINE HCL 50 MG/ML VIAL ONE (13:03)
[2017-07-06] MEDS ORDERED: KETOROLAC TROMETHAMINE INJ/PF 30 MG/1 ML SDV ONE (13:22)
[2017-07-06] MEDS ORDERED: HYDROMORPHONE HCL INJ/PF 2 MG/ML AMPULE ONE (13:22)
[2017-07-06] MEDS ORDERED: ALBUTEROL SULFATE HFA (90 MCG/PUFF) 200 PUFF/8.5 GM MDI IH ONE ×2 (13:27→14:14)
[2017-07-06] MEDS ORDERED: HYDROCODONE/ACETAMINOPHEN 5-325 MG TABLET PO PRN (15:22)
[2017-07-06] MEDS: VANCOMYCIN HCL 1,500 MG in DEXTROSE 5%-WATER 250 ML IV SCH (17:18)
[2017-07-06] MEDS ORDERED: ENOXAPARIN SODIUM INJ 40 MG/0.4 ML DISP.SYRIN SUBCUT SCH (22:00)
[2017-07-06] MEDS ORDERED: VANCOMYCIN HCL 1,500 MG in DEXTROSE 5%-WATER 250 ML IV SCH (22:00)
[2017-07-06] MEDS ORDERED: WARFARIN SODIUM 5 MG TABLET PO SCH (22:00)
[2017-07-06] MEDS ORDERED: ENOXAPARIN SODIUM INJ 100 MG/1 ML DISP.SYRIN SUBCUT ONE (22:45)
[2017-07-07] MEDS: PIPERACILLIN SODIUM/TAZOBACTAM 3.375 GM in NORMAL SALINE 100 ML IV SCH ×3 (05:29→18:17)
[2017-07-07 05:55] LABS: INTERNATIONAL RATION (INR) 1.11; PROTHROMBIN TIME 14.9 SEC (11.4-15.4)
[2017-07-07] MEDS: VANCOMYCIN HCL 1,500 MG in DEXTROSE 5%-WATER 250 ML IV SCH ×2 (06:35→19:25)
--- NOTE | 2017-07-07 08:28 | PDOC PROGRESS REPORT ---
Subjective Progress Note for:: 07/07/17 Subjective:: OK post op Reason For Visit: 3 ABCESSES Physical Exam Vital Signs: Temp Pulse Resp BP Pulse Ox 98.4 F 83 18 143/77 H 90 L 07/06/17 23:19 07/06/17 23:19 07/06/17 23:19 07/06/17 23:19 07/06/17 23:19 Intake & Output 07/06/17 07/07/17 07/08/17 07:59 07:59 07:59 Intake Total 893 1967 Output Total 675 1360 Balance 218 607 Weight 220 lb 3.869 oz 220 lb 7.396 oz General appearance: PRESENT: no acute distress Respiratory exam: PRESENT: wheezes - mild Cardiovascular exam: ABSENT: diastolic murmur, irregular rhythm, systolic murmur GI/Abdominal exam: ABSENT: mass, organolmegaly, tenderness Extremities exam: ABSENT: pedal edema Neurological exam: PRESENT: oriented to situation Psychiatric exam: PRESENT: appropriate affect Results Laboratory Results: 07/06/17 07:43 Blood Type A POSITIVE Assessment & Plan - Diagnosis (1) Cutaneous abscess of buttock Is this a current diagnosis for this admission?: Yes Plan: suspect mrsa. Cultures pending. (2) Cutaneous abscess of left upper extremity Is this a current diagnosis for this admission?: Yes (3) Cutaneous abscess of left lower extremity Is this a current diagnosis for this admission?: Yes (4) Panlobular emphysema Is this a current diagnosis for this admission?: Yes (5) Cor pulmonale Is this a current diagnosis for this admission?: Yes (6) Other pulmonary embolism without acute cor pulmonale Qualifiers: Chronicity: chronic Qualified Code(s): I27.82 - Chronic pulmonary embolism Is this a current diagnosis for this admission?: Yes (7) Essential (primary) hypertension Is this a current diagnosis for this admission?: Yes (8) Enlarged prostate with lower urinary tract symptoms (LUTS) Qualifiers: Lower urinary tract symptom detail: urinary hesitancy Qualified Code(s): N40.1 - Benign prostatic hyperplasia with lower urinary tract symptoms; R39.11 - Hesitancy of micturition; R39.11 - Hesitancy of micturition Is this a current diagnosis for this admission?: Yes - Inpatient Certification Medical Necessity: Failure to Improve With Outpatient Therapy, Significant Comorbidiites Make Outpatient Treatment Too Risky, Need Close Monitoring Due to Risk of Patient Decompensation, Need For IV Fluids, Need for Nebulizer Therapy and Monitoring of Response, Need for IV Antibiotics, Need for Surgery, Risk of Complication if Not Cared For in Hospital, Risk of Diagnosis Which Will Require Inpatient Eval/Care/Monitoring
[2017-07-07] MEDS: IPRATROPIUM/ALBUTEROL 0.5-2.5 MG/3 ML AMPUL NEB PRN ×2 (09:11→18:45)
[2017-07-07] MEDS: FUROSEMIDE 20 MG TABLET PO SCH (10:16)
[2017-07-07] MEDS: ENOXAPARIN SODIUM INJ 100 MG/1 ML DISP.SYRIN SUBCUT SCH ×2 (10:17→21:54)
[2017-07-07] MEDS: MUPIROCIN 2% OINTMENT 22 GM TP SCH ×2 (10:17→19:25)
--- NOTE | 2017-07-07 11:34 | PDOC PROGRESS REPORT ---
Subjective Progress Note for:: 07/07/17 Reason For Visit: 3 ABCESSES Patient is one day status post I&D of multiple abscesses right arm left buttock left leg. Doing well no problems. Physical Exam Vital Signs: Temp Pulse Resp BP Pulse Ox 97.7 F 71 20 137/73 H 97 07/07/17 08:25 07/07/17 09:11 07/07/17 09:11 07/07/17 08:25 07/07/17 09:11 Intake & Output 07/06/17 07/07/17 07/08/17 06:59 06:59 06:59 Intake Total 893 1967 Output Total 675 1360 Balance 218 607 Weight 99.9 kg 100 kg Extremities exam: PRESENT: other - All wound packing removed. Cavities clean no foul smell no significant devitalized tissue remaining; some clot left in situ. Minimal surrounding cellulitis Assessment & Plan - Diagnosis (1) Abscess of multiple sites Is this a current diagnosis for this admission?: Yes Plan: Patient is one day status post debridement of multiple abscesses left arm left buttock left thigh, doing well, growing gram-positive cocci in clusters, on appropriate antimicrobial therapy. Recommendations: 1. Local wound care orders written; change dressing on a daily basis 2. Patient's social situation may require home health on an outpatient basis for assistance 3. Her antimicrobial coverage pending results of final sensitivities. 4. Follow up with advanced wound center in 1-2 weeks if any wounds are not healing appropriately. (2) Cutaneous abscess of buttock Is this a current diagnosis for this admission?: Yes
[2017-07-07] MEDS ORDERED: WARFARIN SODIUM 5 MG TABLET PO SCH (22:00)
[2017-07-08] MEDS: PIPERACILLIN SODIUM/TAZOBACTAM 3.375 GM in NORMAL SALINE 100 ML IV SCH ×5 (00:44→23:48)
[2017-07-08 06:33] LABS: INTERNATIONAL RATION (INR) 1.12
[2017-07-08] MEDS: VANCOMYCIN HCL 1,500 MG in DEXTROSE 5%-WATER 250 ML IV SCH ×2 (06:33→18:40)
[2017-07-08 06:52] LABS: VANCOMYCIN,TROUGH 14.1 ug/mL (5.0-20.0)
--- NOTE | 2017-07-08 07:29 | PDOC PROGRESS REPORT ---
Subjective Progress Note for:: 07/08/17 Subjective:: coughing spells qhs Reason For Visit: 3 ABSCESSES Physical Exam Vital Signs: Temp Pulse Resp BP Pulse Ox 97.7 F 84 16 148/81 H 91 L 07/07/17 23:25 07/07/17 23:25 07/07/17 23:25 07/07/17 23:25 07/07/17 23:25 Intake & Output 07/06/17 07/07/17 07/08/17 07:59 07:59 07:59 Intake Total 893 1967 1340 Output Total 675 1360 650 Balance 218 607 690 Weight 220 lb 3.869 oz 220 lb 7.396 oz 224 lb 10.417 oz General appearance: PRESENT: no acute distress Respiratory exam: PRESENT: wheezes - mild Cardiovascular exam: ABSENT: diastolic murmur, irregular rhythm, systolic murmur GI/Abdominal exam: ABSENT: tenderness Extremities exam: ABSENT: pedal edema Neurological exam: PRESENT: oriented to situation Psychiatric exam: PRESENT: appropriate affect Results Laboratory Results: 07/08/17 05:40 07/08/17 05:40 Creatinine 0.84 Est GFR ( Amer) > 60 Est GFR (Non-Af Amer) > 60 Assessment & Plan - Diagnosis (1) Cutaneous abscess of buttock Is this a current diagnosis for this admission?: Yes (2) Cutaneous abscess of left upper extremity Is this a current diagnosis for this admission?: Yes Plan: ID pending (3) Cutaneous abscess of left lower extremity Is this a current diagnosis for this admission?: Yes (4) Panlobular emphysema Is this a current diagnosis for this admission?: Yes Plan: switch to advair spiriva (5) Cor pulmonale Is this a current diagnosis for this admission?: Yes (6) Other pulmonary embolism without acute cor pulmonale Qualifiers: Chronicity: chronic Qualified Code(s): I27.82 - Chronic pulmonary embolism Is this a current diagnosis for this admission?: Yes (7) Essential (primary) hypertension Is this a current diagnosis for this admission?: Yes (8) Enlarged prostate with lower urinary tract symptoms (LUTS) Qualifiers: Lower urinary tract symptom detail: urinary hesitancy Qualified Code(s): N40.1 - Benign prostatic hyperplasia with lower urinary tract symptoms; R39.11 - Hesitancy of micturition; R39.11 - Hesitancy of micturition Is this a current diagnosis for this admission?: Yes - Inpatient Certification Medical Necessity: Significant Comorbidiites Make Outpatient Treatment Too Risky , Need Close Monitoring Due to Risk of Patient Decompensation, Need for IV Antibiotics, Risk of Complication if Not Cared For in Hospital, Risk of Diagnosis Which Will Require Inpatient Eval/Care/Monitoring
[2017-07-08] MEDS: TIOTROPIUM BROMIDE DPI 5 CAP/KIT (18 MCG/CAP) IH SCH (09:49)
[2017-07-08] MEDS: FLUTICASONE/SALMETEROL DISKUS 250-50 MCG/DOSE IH SCH ×2 (09:50→22:23)
[2017-07-08] MEDS: ENOXAPARIN SODIUM INJ 100 MG/1 ML DISP.SYRIN SUBCUT SCH ×2 (09:50→22:23)
[2017-07-08] MEDS: MUPIROCIN 2% OINTMENT 22 GM TP SCH ×2 (09:51→18:42)
[2017-07-08] MEDS: FUROSEMIDE 20 MG TABLET PO SCH (09:51)
[2017-07-08] MEDS ORDERED: WARFARIN SODIUM 5 MG TABLET PO SCH (22:00)
[2017-07-09] MEDS: PIPERACILLIN SODIUM/TAZOBACTAM 3.375 GM in NORMAL SALINE 100 ML IV SCH (05:15)
[2017-07-09] MEDS: VANCOMYCIN HCL 1,500 MG in DEXTROSE 5%-WATER 250 ML IV SCH (05:18)
--- NOTE | 2017-07-09 07:42 | PDOC PROGRESS REPORT ---
Subjective Progress Note for:: 07/09/17 Subjective:: better but cant afford generic antibiotics to go home. Reason For Visit: 3 ABSCESSES Physical Exam Vital Signs: Temp Pulse Resp BP Pulse Ox 98.5 F 75 16 149/82 H 96 07/08/17 23:41 07/08/17 23:41 07/08/17 23:41 07/08/17 23:41 07/08/17 23:41 Intake & Output 07/07/17 07/08/17 07/09/17 07:59 07:59 07:59 Intake Total 1967 1340 2146 Output Total 1360 650 400 Balance 517 489 2313 Weight 220 lb 7.396 oz 224 lb 10.417 oz 224 lb 10.417 oz General appearance: PRESENT: no acute distress Respiratory exam: PRESENT: wheezes Cardiovascular exam: ABSENT: diastolic murmur, irregular rhythm, systolic murmur GI/Abdominal exam: ABSENT: tenderness Extremities exam: ABSENT: pedal edema Skin exam: PRESENT: other - less swelling L ulna Results Laboratory Results: 07/08/17 05:40 07/06/17 06:19 Elbow - Lesion Gram Stain - Final 07/06/17 06:19 Elbow - Lesion Wound Culture - Final Mrsa (Meth Resis Staph Aureus) 07/06/17 12:16 Leg - Left Gram Stain - Final 07/06/17 12:16 Leg - Left Wound Culture - Final Mrsa (Meth Resis Staph Aureus) No Anaerobic Organisms 07/05/17 21:15 Nasopharyngeal Gram Stain - Final 07/05/17 21:15 Nasopharyngeal Nasopharyngeal Culture - Final Mrsa (Meth Resis Staph Aureus) 07/06/17 12:08 Elbow - Left Gram Stain - Final 07/06/17 12:08 Elbow - Left Wound Culture - Final Mrsa (Meth Resis Staph Aureus) No Anaerobic Organisms Assessment & Plan - Diagnosis (1) Cutaneous abscess of buttock Is this a current diagnosis for this admission?: Yes (2) Cutaneous abscess of left upper extremity Is this a current diagnosis for this admission?: Yes Plan: I discharged him on tmpSmz and doxy for 10d but he cant afford them. So he will stay. (3) Cutaneous abscess of left lower extremity Is this a current diagnosis for this admission?: Yes (4) Panlobular emphysema Is this a current diagnosis for this admission?: Yes (5) Cor pulmonale Is this a current diagnosis for this admission?: Yes (6) Other pulmonary embolism without acute cor pulmonale Qualifiers: Chronicity: chronic Qualified Code(s): I27.82 - Chronic pulmonary embolism Is this a current diagnosis for this admission?: Yes Plan: stopping warfarin because pe was 8m ago and it interacts with sulfa. (7) Essential (primary) hypertension Is this a current diagnosis for this admission?: Yes (8) Enlarged prostate with lower urinary tract symptoms (LUTS) Qualifiers: Lower urinary tract symptom detail: urinary hesitancy Qualified Code(s): N40.1 - Benign prostatic hyperplasia with lower urinary tract symptoms; R39.11 - Hesitancy of micturition; R39.11 - Hesitancy of micturition Is this a current diagnosis for this admission?: Yes
[2017-07-09] MEDS: FUROSEMIDE 20 MG TABLET PO SCH (11:07)
[2017-07-09] MEDS: TIOTROPIUM BROMIDE DPI 5 CAP/KIT (18 MCG/CAP) IH SCH (11:08)
[2017-07-09] MEDS: FLUTICASONE/SALMETEROL DISKUS 250-50 MCG/DOSE IH SCH (11:08)
[2017-07-09] MEDS: ENOXAPARIN SODIUM INJ 100 MG/1 ML DISP.SYRIN SUBCUT SCH (11:08)
[2017-07-09] MEDS: MUPIROCIN 2% OINTMENT 22 GM TP SCH (11:09)
[2017-07-09 16:09] VITALS: BP 154/84
--- NOTE | 2017-07-10 04:52 | PDOC DISCHARGE SUMMARY ---
General - Admit/Disc Date/PCP Admission Date/Primary Care Provider: 07/05/17 17:31 SULEMA RICH MD Discharge Date: 07/09/17 - Discharge Diagnosis (1) Cutaneous abscess of buttock Is this a current diagnosis for this admission?: Yes (2) Cutaneous abscess of left upper extremity Is this a current diagnosis for this admission?: Yes (3) Cutaneous abscess of left lower extremity Is this a current diagnosis for this admission?: Yes (4) Panlobular emphysema Is this a current diagnosis for this admission?: Yes (5) Cor pulmonale Is this a current diagnosis for this admission?: Yes (6) Other pulmonary embolism without acute cor pulmonale Is this a current diagnosis for this admission?: Yes (7) Essential (primary) hypertension Is this a current diagnosis for this admission?: Yes (8) Enlarged prostate with lower urinary tract symptoms (LUTS) Is this a current diagnosis for this admission?: Yes - Additional Information Resuscitation Status: Full Code Discharge Diet: Cardiac Discharge Activity: Activity As Tolerated, Balance Activity w/Rest, Keep Legs Elevated, Slowly Increase Activity Prescriptions: Doxycycline Hyclate [Vibramycin 100 mg Tablet] 100 mg PO BID #20 tablet Sulfamethoxazole/Trimethoprim [Bactrim Ds Tablet] 2 each PO Q12H #40 tablet Home Medications: Albuterol Sulfate [Proair Respiclick] 2 puff IH Q6HP PRN 07/06/17 Furosemide [Lasix] 20 mg PO DAILY 07/06/17 Doxycycline Hyclate [Vibramycin 100 mg Tablet] 100 mg PO BID #20 tablet Fluticasone/Salmeterol [Advair 250-50 Diskus 14 Dose/Diskus] 1 inh IH Q12 inhaler 07/09/17 Mupirocin [Bactroban 2% Ointment 22 gm] 1 applic TP BID tube 07/09/17 Sulfamethoxazole/Trimethoprim [Bactrim Ds Tablet] 2 each PO Q12H #40 tablet 04/27 Tiotropium [place] [Spiriva Handihaler 5 Cap/Kit (18 Mcg/Cap)] 1 cap IH DAILY kit 07/09/17 History of Present Illness Patient complains of: abscesses History of Present Illness: SYD SADLER is a 71 year old male with painful swellings L forearm hip R buttock. Hospital Course Hospital Course: The 3 wounds were debrided. They and the nose grew MRSA. He had 5d vanc and zosyn and remained afebrile. Redness and swelling declined. Physical Exam Vital Signs: Temp Pulse Resp BP Pulse Ox 98.3 F 99 18 154/84 H 94 07/09/17 16:56 07/09/17 16:56 07/09/17 16:56 07/09/17 16:56 07/09/17 16:56 Intake & Output 07/08/17 07/09/17 07/10/17 07:59 07:59 07:59 Intake Total 1340 2146 Output Total 650 400 Balance 690 1746 Weight 224 lb 10.417 oz 224 lb 10.417 oz General appearance: PRESENT: no acute distress Respiratory exam: PRESENT: wheezes Cardiovascular exam: ABSENT: diastolic murmur, irregular rhythm, systolic murmur GI/Abdominal exam: ABSENT: tenderness Extremities exam: ABSENT: pedal edema Neurological exam: PRESENT: oriented to situation Psychiatric exam: PRESENT: appropriate affect Results Laboratory Results: 07/08/17 05:40 07/06/17 12:16 Back - Lower Gram Stain - Final 07/06/17 12:16 Back - Lower Wound Culture - Final Mrsa (Meth Resis Staph Aureus) No Anaerobic Organisms Labs- Last Values WBC 9.3 10^3/uL (4.0-10.5) 07/05/17 14:30 RBC 3.96 10^6/uL (4.35-5.55) L 07/05/17 14:30 Hgb 13.0 g/dL (13.5-17.0) L 07/05/17 14:30 Hct 37.8 % (37.9-51.0) L 07/05/17 14:30 MCV 95 fl (80-97) 07/05/17 14:30 MCH 32.8 pg (27.0-33.4) 07/05/17 14:30 MCHC 34.4 g/dL (32.0-36.0) 07/05/17 14:30 RDW 14.4 % (11.5-14.0) H 07/05/17 14:30 Plt Count 290 10^3/uL (150-450) 07/05/17 14:30 Seg Neutrophils % 70.7 % (42-78) 07/05/17 14:30 Lymphocytes % 14.2 % (13-45) 07/05/17 14:30 Monocytes % 12.1 % (3-13) 07/05/17 14:30 Eosinophils % 2.2 % (0-6) 07/05/17 14:30 Basophils % 0.8 % (0-2) 07/05/17 14:30 Absolute Neutrophils 6.5 10^3/uL (1.7-8.2) 07/05/17 14:30 Absolute Lymphocytes 1.3 10^3/uL (0.5-4.7) 07/05/17 14:30 Absolute Monocytes 1.1 10^3/uL (0.1-1.4) 07/05/17 14:30 Absolute Eosinophils 0.2 10^3/uL (0.0-0.6) 07/05/17 14:30 Absolute Basophils 0.1 10^3/uL (0.0-0.2) 07/05/17 14:30 PT 15.0 SEC (11.4-15.4) 07/08/17 05:40 INR 1.12 07/08/17 05:40 Sodium 139.5 mmol/L (137-145) 07/05/17 16:06 Potassium 4.5 mmol/L (3.6-5.0) 07/05/17 16:06 Chloride 97 mmol/L (98-107) L 07/05/17 16:06 Carbon Dioxide 35 mmol/L (22-30) H 07/05/17 16:06 Anion Gap 8 (5-19) 07/05/17 16:06 BUN 8 mg/dL (7-20) 07/05/17 16:06 Creatinine 0.84 mg/dL (0.52-1.25) 07/08/17 05:40 Est GFR ( Amer) > 60 (>60) 07/08/17 05:40 Est GFR (Non-Af Amer) > 60 (>60) 07/08/17 05:40 Glucose 85 mg/dL (75-110) 07/05/17 16:06 Calcium 9.2 mg/dL (8.4-10.2) 07/05/17 16:06 Total Bilirubin 0.4 mg/dL (0.2-1.3) 07/05/17 16:06 Direct Bilirubin 0.3 mg/dL (0.0-0.4) 07/05/17 16:06 Neonat Total Bilirubin Not Reportable 07/05/17 16:06 Neonat Direct Bilirubin Not Reportable 07/05/17 16:06 Neonat Indirect Bili Not Reportable 07/05/17 16:06 AST 25 U/L (17-59) 07/05/17 16:06 ALT 22 U/L (21-72) 07/05/17 16:06 Alkaline Phosphatase 83 U/L (38-126) 07/05/17 16:06 Total Protein 7.1 g/dL (6.3-8.2) 07/05/17 16:06 Albumin 3.8 g/dL (3.5-5.0) 07/05/17 16:06 Time Trough Drawn 0540 07/08/17 05:40 Vancomycin Trough 14.1 ug/mL (5.0-20.0) 07/08/17 05:40 Blood Type A POSITIVE 07/06/17 07:43 Qualifiers - * PATIENT BEING DISCHARGED WITH ANY OF THE FOLLOWING DIAGNOSIS: No Plan Discharge Plan: home soniya dressing changes MWF 6d ov
== END 2017-07-09 17:32 | disposition home health service (06) | DRG 571 ==
LOC: ER 13:32 → EH 17:31 → 4N 20:40
PROVIDERS: ADMIT Family Medicine; ATTEND Family Medicine
PROC: 0JBP0ZZ Excision of Left Lower Leg Subcutaneous Tissue and Fascia, Open Approach (ICD-10-PCS; 2017-07-06)
PROC: 0JBH0ZZ Excision of Left Lower Arm Subcutaneous Tissue and Fascia, Open Approach (ICD-10-PCS; 2017-07-06)
PROC: 0JB90ZZ Excision of Buttock Subcutaneous Tissue and Fascia, Open Approach (ICD-10-PCS; principal; 2017-07-06 14:00)
DX: L02.31 Cutaneous abscess of buttock (principal); L02.414 Cutaneous abscess of left upper limb; L02.416 Cutaneous abscess of left lower limb; J34.0 Abscess, furuncle and carbuncle of nose; J43.1 Panlobular emphysema; B95.62 Methicillin resistant Staphylococcus aureus infection as the cause of diseases classified elsewhere; N40.1 Benign prostatic hyperplasia with lower urinary tract symptoms; Z79.01 Long term (current) use of anticoagulants; Z86.711 Personal history of pulmonary embolism; I27.81 Cor pulmonale (chronic); M19.90 Unspecified osteoarthritis, unspecified site; Z86.718 Personal history of other venous thrombosis and embolism; F17.200 Nicotine dependence, unspecified, uncomplicated; H54.40 Blindness, one eye, unspecified eye; R39.11 Hesitancy of micturition
CPT/HCPCS: 300; 36415; 36430; 80053; 80202; 82565; 85025; 85610; 86900; 86901; 87040; 87070; 87075; 87077; 87186; 87205; 94640; 99285; J0330; J1170; J1200; J1650; J1885; J2250; J2543; J2704; J3010; J3370; J3490; J7060; J7620; P9017